=== PATIENT | female | born 1990 | race African-American/Black ===

== ENCOUNTER 2016-02-23 12:39 | Emergency (ER) | payer OTHER ==
[~2016-02-23] VITALS: Ht 167.6 cm; Wt 66.7 kg
[~2016-02-23 12:39] MED LIST: ALBUTEROL0.09 MG/A1 INH; ALBUTEROL2.5 MG/3 M INH/SOL; ALPRAZOLAM0.5 MG PO; AUGMENTIN 875 M1 TAB PO; BENLYSTA120 MG IV; BENTYL10 M1 PO; BIAXIN FILMTAB500 MG PO; COUMADIN 10 MG10 MG PO; COUMADIN 5 MG TA5 MG PO; COUMADIN10 M1 PO; COUMADIN7.5 M1 PO; CYCLOBENZAPRINE10 M1 PO; CYMBALTA30 M1 PO; DEPO-PROVER150 MG/ML IM; DEPO-TESTADIOL10 ML IM; DILAUDID2 M1 PO; DILAUDID2 MG PO; FERROUS SULFAT325 M1 PO; FLOVENT HF0.044 MG/A INH; FLOVENT HFA10.6 GM INH; GLUTOSE 1540% PO; GLUTOSE PO; HYDROMORPHONE HC2 MG PO; HYDROXYZINE HCL25 MG PO; IMURAN50 M1 PO; JUNEL FE 1 MG-1 EACH; KLONOPIN0.5 M1 PO; LABETALOL HCL100 M1 PO; LABETALOL HYDR100 MG PO; LABETALOL HYDR200 MG PO; LOESTRIN 21 1-1 EACH PO; LOVENOX 10100 MG/1 M SC; LOVENOX80 MG/0.1 SQ; MASON NATURAL325 MG PO; NEURONTIN100 MG PO; NORVASC 2.5 MG2.5 MG PO; NORVASC 5MG TAB5 MG PO; OXYCODONE HYDRO10 M1 PO; PANTOPRAZOLE SO40 M1 PO; PERCOCET 325 MG1 TA2; PERCOCET 325 MG1 TA2 PO; PERCOCET 325 MG1 TAB PO; PERCOCET 5-3251 EACH PO; PHENERGAN25 M1 PO; PLAQUENIL200 M1 PO; PLAQUENIL200 MG PO; PREDNISONE 10MG10 M1 PO; PREDNISONE 20MG20 MG PO; PREDNISONE10 MG PO; PREDNISONE20 M1 PO; PREDNISONE5 MG PO; PRINIVIL10 MG PO; PROAIR HFA8.5 GM INH; PROMETHAZINE HC25 M3 PO; PROTONIX 20MG T20 MG PO; PROTONIX40 M3 PO; REGLAN10 M1 PO; REGLAN10 MG PO; SENNA CON/DOCUS1 TAB PO; SINGULAIR10 MG PO; TIZANIDINE HCL2 MG PO; TRAZODONE HCL50 M1 PO; TYLENOL XSTR500 MG PO; VITAMIN D250000 UNIT PO; VITAMIN D50000 IU PO; VOLTAREN GEL1% TOP; XANAX0.5 MG PO; ZOFRAN ODT4 MG SL; ZOFRAN4 M1 SL; ZOFRAN4 M2 SL
--- NOTE | 2016-02-23 14:56 | ED GENERAL ADULT ---
History of Present Illness General Chief Complaint: General Adult Stated Complaint: LUPUS FLARE UP Source: patient, old records Exam Limitations: no limitations Vital Signs & Intake/Output Vital Signs & Intake/Output Vital Signs Date Time Temp Pulse Resp B/P Pulse O2 O2 Flow FiO2 Ox Delivery Rate 02/22 1626 96.6 18 119/73 02/22 1245 97.1 90 18 147/98 99 Room Air Allergies Coded Allergies: ibuprofen (TRIGGERS ASTHMA, ITCHY, HIVES 11/27/15) meperidine (From DEMEROL) (itch, HIVES 11/27/15) Reconcile Medications Albuterol (Albuterol Inhaler) 0.09 MG/Actuation MELODY 2 PUF INH Q4P PRN BREATHING (Reported) Reason to Stop at ADM: TRC NEBS Albuterol Sulfate 3 ML NEB 3 ML INH PRN ASTHMA (Reported) Azathioprine (Imuran) 50 MG TABLET 50 MG PO TID LUPUS (Reported) Clonazepam (Klonopin) 0.5 MG TABLET 2.5 MG PO BID ANXIETY (Reported) Dicyclomine Hydrochloride (Bentyl) 10 MG CAPSULE 1 CAP PO TID PRN ABDOMINAL SPASMS Duloxetine Hydrochloride (Cymbalta) 30 MG CAPSULE.DR 1 CAP PO BID MENTAL HEALTH (Reported) Ergocalciferol (Vitamin D2) (Vitamin D2) 50,000 UNIT CAPSULE 1 CAP PO 2XW SUPPLEMENT (Reported) Fluticasone Propionate (Flovent Hfa) 0.044 MG/Actuation MELODY 2 PUFF INH PRN ASTHMA (Reported) 44 MCG PER PUFF Hydroxychlorquine (Plaquenil) 200 MG TAB 1 TAB PO BID LUPUS (Reported) Hyoscyamine (Levsin) 0.125 MG TABLET 1 TAB PO Q4 PRN abdominal pain Labetalol HCl 100 MG TABLET 150 MG PO BID BP (Reported) Metoclopramide HCl (Reglan) 10 MG TABLET 1 TAB PO 4 TIMES/DAY PRN NAUSEA/ VOMITING 30 minutes before meals and bedtime Montelukast Sodium (Singulair) 10 MG TABLET 1 TAB PO DAILY ASTHMA (Reported) Norethindrone-E.estradiol-Iron (Junel Fe 1 MG-20 Mcg Tablet) (Unknown Strength) TABLET (Unknown Dose) UNKNOWN (Reported) Ondansetron (Zofran Odt) 4 MG TAB.RAPDIS 1 TAB SL TID PRN nausea Oxycodone HCl/Acetaminophen (Percocet 5-325 MG Tablet) 5 MG-325 MG TABLET 1 TAB PO BID PRN PAIN Pantoprazole Sodium 40 MG TABLET.DR 1 TAB PO DAILY GI (Reported) Prednisone 20 MG TABLET 15 MG PO DAILY LUPUS (Reported) TRAZODONE HCL (Trazodone HCl) 50 MG TAB 1 TAB PO QPM SLEEP (Reported) Warfarin Sodium (Coumadin) 10 MG TABLET 1 TAB PO DAILY HX DVT (Reported) Triage Note: 26 Y/O FEMALE C/O MIGRAINE HEADACHE AND NAUSEA SINCE MONDAY; STATES SHE THOUGHT SHE HAD THE "STOMACH VIRUS" LAST WEEK BUT CONTINUES TO FEEL NAUSEOUS AND UNABLE TO TOLERATE PO INTAKE. AFEBRILE Triage Nurses Notes Reviewed? yes Onset: Gradual Duration: week(s): (1) Timing: remote history Injury Environment: home Severity: moderate Severity Numbers: 7 No Modifying Factors: none Associated Symptoms: cough, chest pain : No Patient currently breastfeeds: No HPI: Patient is a 26-year-old female with history of blood clots and lupus presenting to the emergency department with chief complaint of generalized malaise, chills. Unable to keep anything down for the past several days. She reports that several family members of her household have been sick with a stomach bug. She reports diffuse abdominal discomfort. Couple episodes of loose stool. Symptoms currently moderate. She reports diffuse body aches. Denies any urinary frequency urgency or dysuria. Denies chance of . Unable to take Coumadin over the past 3-4 days secondary to nausea and vomiting. Denies any blood in emesis or stool. No recent travel. No recent antibiotics. Denies any leg swelling or pain. Pain over the chest hurts worse with a deep breath. (MANOJ WEBB) Past History Travel History Traveled to [place] past 21 day No Medical History Any Pertinent Medical History? 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 MOTHER (Rheumatoid arthritis). SISTER (Psoariasis). Relation not specified for: Blood clots DVT FH: diabetes mellitus FH: pancreatic cancer FH: rheumatoid arthritis Hx Contributory? No (MANOJ WEBB) Review of Systems Review of Systems Constitutional: Reports: chills, malaise. Comments Review of systems: See HPI, All other systems negative. Constitutional, no weight loss HEENT: No visual changes no sore throat no congestion Cardiovascular: No palpitation , orthopnea or ankle swelling Skin, no jaundice no rashes Respiratory: No sputum or hemoptysis GI: pos n/v/loose stool : No dysuria No hematuria Muscle skeletal: no back pain, no neck pain, Neurologic: No numbness no confusion Psych: No stress anxiety Immunology: No splenectomy or history of AIDS (MANOJ WEBB) Physical Exam Physical Exam General Appearance: well developed/nourished, no apparent distress, alert, awake , comfortable Comments: Well-developed well-nourished person in no acute distress HEENT: Pupils equally round and reactive to light and accommodation. Nose is atraumatic. External auditory canal and Tympanic membranes clear. Pharynx normal. No swelling or edema. Slightly dry oral mucosa. Neck: Supple, no lymphadenopathy, normal range of motion without pain or tenderness Back: Nontender, no CVA tenderness. Full range of motion Cardiovascular: Regular rate and rhythms no murmurs rubs or gallops, normal JVP Respiratory: Chest nontender. No respiratory distress.breath sounds slightly diminished to auscultation bilaterally at bases Abdomen: Soft, diffuse tenderness to palpation, no rebound or guarding, nondistended, no appreciable organomegaly. Normal bowel sounds. No ascites Extremity: No edema, no calf tenderness to palpation, normal and equal pulses. Neuro: Alert oriented x3 Skin: No appreciable rash on exposed skin, skin is warm and dry. Psych: Mood and affect is normal, memory and judgment is normal. Core Measures ACS in differential dx? Yes CVA/TIA Diagnosis: No Severe Sepsis Present: No Septic Shock Present: No (MANOJ WEBB) Progress Differential Diagnoses I considered the following diagnoses in my evaluation of the patient: Dehydration, I'll actually abnormality, pulmonary embolus, ACS, AMI, lupus flare , pneumonia, bronchitis, gastritis, gastroenteritis Plan of Care: Orders Procedure Date/time Status Add-on Test (ER Only) 02/22 1704 Active URINE 02/22 1555 Complete PROTHROMBIN TIME 02/22 1517 Complete URINE DRUG SCREEN FOR ER ONLY 02/22 1514 Complete URINALYSIS 02/22 1514 Complete TROPONIN LEVEL 02/22 1514 Complete LIPASE 02/22 1514 Complete COMPREHENSIVE METABOLIC PANEL 02/22 1514 Complete CBC WITHOUT DIFFERENTIAL 02/22 1514 Complete AMYLASE 02/22 1514 Complete EKG 02/22 1514 Active Current Medications Sig/Ariel Start time Last Medication Dose Stop Time Status Admin Hydromorphone HCl 0 .STK-MED ONE 02/22 1658 CAN (Dilaudid) Ondansetron HCl 0 .STK-MED ONE 02/22 1655 CAN (Zofran) Hydromorphone HCl 2 MG ONCE ONE 02/22 1630 CAN (Dilaudid) 02/22 1631 Ondansetron HCl 4 MG ONCE ONE 02/22 1630 CAN (Zofran) 02/22 1631 Laboratory Tests 02/23/16 1620: Anion Gap 11, Estimated GFR > 60, BUN/Creatinine Ratio 14.0, Glucose 77, Calcium 9.4, Total Bilirubin 0.5, AST 24, ALT 18, Alkaline Phosphatase 64, Troponin I < 0.01, Total Protein 8.6 H, Albumin 4.1, Globulin 4.5 H, Albumin/Globulin Ratio 0.9 L, Amylase 100, Lipase 112, PT 12.4, INR 1.18, CBC w Diff NO MAN DIFF REQ, RBC 3.90 L, MCV 82.3, MCH 26.8 L, RDW 13.6, MPV 8.8, Gran % 56.4, Lymphocytes % 31.8, Monocytes % 11.1 H, Eosinophils % 0.5, Basophils % 0.2, Absolute Granulocytes 2.7, Absolute Lymphocytes 1.5, Absolute Monocytes 0.5, Absolute Eosinophils 0, Absolute Basophils 0, PUBS MCHC 32.6 L 02/23/16 1555: Urine Opiates Screen < 100.00, Methadone Screen < 40, Barbiturate Screen 590 H, Ur Phencyclidine Scrn < 6.00, Amphetamines Screen < 100, U Benzodiazepines Scrn < 85, Urine Cocaine Screen < 50, Urine Cannabis Screen > 80.00 H, Urine Color YEL, Urine Clarity CLEAR, Urine pH 6.5, Ur Specific Langston 1.020, Urine Protein 30 H, Urine Ketones NEG, Urine Nitrite NEG, Urine Bilirubin NEG, Urine Urobilinogen 0.2, Ur Leukocyte Esterase NEG, Ur Microscopic SEDIMENT EXAMINED, Urine RBC RARE, Urine WBC 3-5 H, Ur Epithelial Cells MOD H, Urine Mucus FEW, Urine Hemoglobin NEG, Urine Glucose NEG, Urine Test NEGATIVE Diagnostic Imaging: Viewed by Me: CT Scan. Discussed w/RAD: CT Scan. Radiology Impression: PATIENT: RAJEEV GLASER PRESENT AGE: 26 PATIENT ACCOUNT NO: [id number] : 91 LOCATION: [facility] ORDERING PHYSICIAN: MANOJ FELIX SERVICE DATE: 02/23/16 EXAM TYPE: CAT - CTA CHEST-PULMONARY EMBOLISM EXAMINATION: CT ANGIOGRAM OF THE CHEST WITH AND WITHOUT CONTRAST (CT PULMONARY ANGIOGRAM FOR PE) CLINICAL INFORMATION: Shortness of breath and chest pain. Evaluate for pulmonary embolism. COMPARISON: CT angiogram of the chest 08/07/2014. TECHNIQUE: Prior to contrast administration, noncontrast localization images were obtained. Subsequently, multidetector volumetric imaging was performed from the thoracic inlet to below the diaphragms following the administration of 74 mL Optiray 350 intravenous contrast. No contrast reaction reported Sagittal, coronal, and MIP oblique sagittal reformatted images were obtained on the CT workstation, uploaded to PACS, and reviewed. Total exam dose-length product 278.72 mGy-cm FINDINGS: The timing of the contrast bolus injection provides adequate evaluation of the pulmonary arterial vasculature. There is no central luminal filling defect to suggest the presence of an acute pulmonary embolism. There is scarring and/or subsegmental atelectasis within the costophrenic recesses of the lower lobes. No focal consolidative disease or effusion. No pneumothorax. No worrisome pulmonary mass. The trachea and major airways are patent. There are numerous prominent symmetrically distributed axillary lymph nodes that remain largely unchanged when compared to the previous CT angiogram the chest from 08/07/2014. Post biopsy changes within the left axillary region are redemonstrated. The heart is slightly prominent but unchanged. There is no pericardial effusion. Aortic arch apex is normal and the major aortic branches are patent. Limited visualization of the upper abdomen reveals no abnormal finding. Digital glands are normal. There is no acute osseous finding. No worrisome lytic or blastic osseous lesions. IMPRESSION: Stable examination with scarring and/or atelectasis within the costophrenic recesses of the lower lobes. There is no focal consolidative disease or effusion. No evidence of acute pulmonary embolism. Bilateral axillary adenopathy is redemonstrated with post biopsy changes on the left. VTE: negative DICTATED BY: ERIN RUTLEDGE MD Initial ED EKG: sinus rhythm at 58 bpm, nonspecific T abnormalities Prior EKG: unchanged Comments: Patient reports that she is feeling much better after IV Dilaudid, IV fluids, IV Zofran. Patient will be discharged home. No signs of PE on CT scan. (MANOJ WEBB) Departure Departure Time of Disposition: 1899 Disposition: HOME OR SELF CARE Condition: Stable Clinical Impression Primary Impression: Nausea & vomiting Qualifiers: Vomiting type: unspecified Vomiting Intractability: non-intractable Qualified Code: R11.2 - Nausea with vomiting, unspecified Secondary Impressions: Chest pain Qualifiers: Chest pain type: unspecified Qualified Code: R07.9 - Chest pain, unspecified Referrals: MIRTHA LOBATO (PCP/Family) Additional Instructions: Follow-up with your primary care physician call to make appointment. Take percocet as previously prescribed for pain. Take Zofran as prescribed for nausea. Increase fluids. Return for worsening symptoms or concerns. take levsin for abdominal spasms. Departure Forms: Customer Survey General Discharge Information Prescriptions: Current Visit Scripts Ondansetron (Zofran Odt) 1 TAB SL TID PRN nausea #10 TAB Hyoscyamine (Levsin) 1 TAB PO Q4 PRN abdominal pain #20 TAB (MANOJ WEBB) PA/[employer]SI[employer]OM[employer] Co-Sign Statement Statement: ED Attending supervision documentation- [] I saw and evaluated the patient. I have also reviewed all the pertinent lab results and diagnostic results. I agree with the findings and the plan of care as documented in the PA's/[employer]SI[employer] WOMEN'[employer]'s documentation. [X] I have reviewed the ED Record and agree with the PA's/[employer]SI[employer] WOM[employer]'s documentation. [] Additions or exceptions (if any) to the PAs/ASSIST[employer] WOMEN'[employer]OWING CO[employer]'s note and plan are summarized below: [] (AARON DEL VALLE,MAYANK Germain) Critical Care Note Critical Care Note Critical Care Time: non-applicable (GIAN FELIX,MANOJ)
[2016-02-23 16:29] LABS: ABSOLUTE BASOPHIL COUNT 0 /CUMM (0.0-0.2); ABSOLUTE EOSINOPHIL COUNT 0 /CUMM (0.0-0.7); ABSOLUTE GRANULOCYTE CT 2.7 /CUMM (1.4-6.5); ABSOLUTE LYMPH COUNT 1.5 /CUMM (1.2-3.4); ABSOLUTE MONOCYTE COUNT 0.5 /CUMM (0.10-0.60); BASOPHIL % 0.2 % (0.0-2.0); EOSINOPHIL % 0.5 % (0-5); GRANULOCYTE % 56.4 % (42.2-75.2); HEMATOCRIT 32.1 % (37-47); MEAN CORPUSCULAR HGB 26.8 PG (27.0-31.0); MEAN CORPUSCULAR HGB CONC 32.6 G/DL (33.0-37.0); MEAN CORPUSCULAR VOLUME 82.3 FL (81.0-99.0); MEAN PLATELET VOLUME 8.8 FL (7.4-10.4); PLATELET COUNT 236 /CUMM (130-400); RBC DISTRIBUTION WIDTH 13.6 % (11.5-14.5); WHITE BLOOD CELL COUNT 4.8 /CUMM (4.8-10.8)
[2016-02-23 16:36] LABS: PT 12.4 SEC (9.4-12.5)
--- NOTE | 2016-02-23 18:08 | CT SCAN REPORT ---
EXAMINATION: CT ANGIOGRAM OF THE CHEST WITH AND WITHOUT CONTRAST (CT PULMONARY ANGIOGRAM FOR PE) CLINICAL INFORMATION: Shortness of breath and chest pain. Evaluate for pulmonary embolism. COMPARISON: CT angiogram of the chest 08/07/2014. TECHNIQUE: Prior to contrast administration, noncontrast localization images were obtained. Subsequently, multidetector volumetric imaging was performed from the thoracic inlet to below the diaphragms following the administration of 74 mL Optiray 350 intravenous contrast. No contrast reaction reported Sagittal, coronal, and MIP oblique sagittal reformatted images were obtained on the CT workstation, uploaded to PACS, and reviewed. Total exam dose-length product 278.72 mGy-cm FINDINGS: The timing of the contrast bolus injection provides adequate evaluation of the pulmonary arterial vasculature. There is no central luminal filling defect to suggest the presence of an acute pulmonary embolism. There is scarring and/or subsegmental atelectasis within the costophrenic recesses of the lower lobes. No focal consolidative disease or effusion. No pneumothorax. No worrisome pulmonary mass. The trachea and major airways are patent. There are numerous prominent symmetrically distributed axillary lymph nodes that remain largely unchanged when compared to the previous CT angiogram the chest from 08/07/2014. Post biopsy changes within the left axillary region are redemonstrated. The heart is slightly prominent but unchanged. There is no pericardial effusion. Aortic arch apex is normal and the major aortic branches are patent. Limited visualization of the upper abdomen reveals no abnormal finding. Digital glands are normal. There is no acute osseous finding. No worrisome lytic or blastic osseous lesions. IMPRESSION: Stable examination with scarring and/or atelectasis within the costophrenic recesses of the lower lobes. There is no focal consolidative disease or effusion. No evidence of acute pulmonary embolism. Bilateral axillary adenopathy is redemonstrated with post biopsy changes on the left. VTE: negative
[2016-02-23] MEDS ORDERED: LEVSIN0.125 M1 PO (19:03)
[2016-02-23] MEDS ORDERED: ZOFRAN ODT4 M1 SL (19:03)
[2016-02-23 19:31] VITALS: BP 125/76
[2016-07-15] MEDS ORDERED: HYDROXYZINE HCL25 M2 PO (12:24)
[2016-07-15] MEDS ORDERED: PERCOCET 10-321 EACH PO (12:24)
[2016-07-15] MEDS ORDERED: SINGULAIR10 M1 PO (12:24)
== END 2016-02-23 19:57 ==
LOC: ERH 12:39
PROVIDERS: Physician Assistant
DX: R11.2 Nausea with vomiting, unspecified (principal); R07.9 Chest pain, unspecified; R10.9 Unspecified abdominal pain; M79.1 Myalgia
CPT/HCPCS: 80307; 81001; 81025; 93005; 93010; 96374; 96375; 96376; J2405; J3101

== ENCOUNTER 2016-03-03 12:26 | Emergency (ER) | payer OTHER ==
[~2016-03-03] VITALS: Ht 167.6 cm; Wt 62.1 kg
[~2016-03-03 12:26] MED LIST changes: +LEVSIN0.125 M1 PO; +ZOFRAN ODT4 M1 SL
--- NOTE | 2016-03-03 13:13 | ED CARDIAC/CP/PALPITATIONS ---
History of Present Illness General Chief Complaint: Chest Pain Stated Complaint: PT HAS LUPAS AND HAVING CHEST PAIN & PALPATION Source: patient, old records Exam Limitations: no limitations Vital Signs & Intake/Output Vital Signs & Intake/Output Vital Signs Date Time Temp Pulse Resp B/P Pulse O2 O2 Flow FiO2 Ox Delivery Rate 03/03 1825 96.5 88 20 130/80 100 Room Air 03/03 1505 98.0 88 18 128/81 98 Room Air 03/03 1303 Room Air 03/03 1235 97.7 115 20 136/96 94 Room Air ED Intake and Output 03/04 0000 03/03 1200 Intake Total Output Total Balance Patient 137 lb Weight Allergies Coded Allergies: ibuprofen (TRIGGERS ASTHMA, ITCHY, HIVES 11/27/15) meperidine (From DEMEROL) (itch, HIVES 11/27/15) Reconcile Medications Albuterol (Albuterol Inhaler) 0.09 MG/Actuation MELODY 2 PUF INH Q4P PRN BREATHING (Reported) Reason to Stop at ADM: TRC NEBS Albuterol Sulfate 3 ML NEB 3 ML INH PRN ASTHMA (Reported) Azathioprine (Imuran) 50 MG TABLET 50 MG PO TID LUPUS (Reported) Clonazepam (Klonopin) 0.5 MG TABLET 2.5 MG PO BID ANXIETY (Reported) Dicyclomine Hydrochloride (Bentyl) 10 MG CAPSULE 1 CAP PO TID PRN ABDOMINAL SPASMS Duloxetine Hydrochloride (Cymbalta) 30 MG CAPSULE.DR 1 CAP PO BID MENTAL HEALTH (Reported) Ergocalciferol (Vitamin D2) (Vitamin D2) 50,000 UNIT CAPSULE 1 CAP PO 2XW SUPPLEMENT (Reported) Fluticasone Propionate (Flovent Hfa) 0.044 MG/Actuation MELODY 2 PUFF INH PRN ASTHMA (Reported) 44 MCG PER PUFF Hydroxychlorquine (Plaquenil) 200 MG TAB 1 TAB PO BID LUPUS (Reported) Hyoscyamine (Levsin) 0.125 MG TABLET 1 TAB PO Q4 PRN abdominal pain Labetalol HCl 100 MG TABLET 150 MG PO BID BP (Reported) Metoclopramide HCl (Reglan) 10 MG TABLET 1 TAB PO 4 TIMES/DAY PRN NAUSEA/ VOMITING 30 minutes before meals and bedtime Montelukast Sodium (Singulair) 10 MG TABLET 1 TAB PO DAILY ASTHMA (Reported) Norethindrone-E.estradiol-Iron (Junel Fe 1 MG-20 Mcg Tablet) (Unknown Strength) TABLET (Unknown Dose) UNKNOWN (Reported) Ondansetron (Zofran Odt) 4 MG TAB.RAPDIS 1 TAB SL TID PRN nausea Oxycodone HCl/Acetaminophen (Percocet 5-325 MG Tablet) 5 MG-325 MG TABLET 1 TAB PO BID PRN PAIN Pantoprazole Sodium 40 MG TABLET.DR 1 TAB PO DAILY GI (Reported) Prednisone 20 MG TABLET 15 MG PO DAILY LUPUS (Reported) TRAZODONE HCL (Trazodone HCl) 50 MG TAB 1 TAB PO QPM SLEEP (Reported) Warfarin Sodium (Coumadin) 10 MG TABLET 1 TAB PO DAILY HX DVT (Reported) Triage Note: PT TO ED C/O LEFT SIDED BACK PAIN RADIATING TO FRONT. C/O HEART PALPITATIONS AND CHEST TIGHTNESS X 2 DAYS. ALSO C/O HEADACHE. PT STATES "I AM ALSO VERY DEPRESSED AND WANT TO TALK TO SOMEONE". Triage Nurses Notes Reviewed? yes : No Patient currently breastfeeds: No HPI: 26-year-old female with chest pain and palpitations intermittently for the last 4 days. She has a history of lupus, history of PE/DVT, she supposed be on Coumadin but has not taken it for the last 2 weeks. She states that she is not taking any of her usual medications because she is very depressed. She has history of suicidal thoughts in the past, occasionally having suicidal thoughts recently over the last few weeks, has no plan. She previously attempted to commit suicide by wrapping headphones around her neck. She was admitted at [facility] inpatient a few years ago for this. She would like to speak with someone regarding her depression, she tends to speak her family and her fianc however she states that "they doN'T understand". She denies alcohol use, admits to marijuana use. in regards to her medications, they're intermittent and moderate and she has pain associated with the palpitations, she feels the bleeding in the left side of her chest that radiates into her neck. She has no lower extremity edema. No dyspnea on exertion. Upon review of her records, she has had a CT angiogram of her chest 9 days ago and no PE or abnormality was noted. She notes that she is not taking her medication any longer because she does not want to and doesn't feel they help (SAMANTHA FELIX,MOHAMUD) Past History Travel History Traveled to [place] past 21 day No Medical History Any Pertinent Medical History? see below for history Neurological: migraine EENT: NONE Cardiovascular: hypertension, Pericarditis Respiratory: asthma, h/o pleuritis and pleural effusions s/p thoracentesis Gastrointestinal: NONE Hepatic: NONE Renal: nephrolithiasis, CKD s/p biopsy (2007, 2010) Musculoskeletal: Avascular necrosis of hip Carpal tunnel syndrome left hand Psychiatric: anxiety, depression Endocrine: LUPUS Blood Disorders: anemia, DVT (Left IJ vein on coumadin) Cancer(s): NONE RN PRIOR AUTHORIZATION/Reproductive: D&C Other Medical Hx: SLE on prednisone History of MRSA: No History of VRE: No History of CDIFF: No Surgical History Surgical History: non-contributory Psychosocial History Who do you live with Significant Other Services at Home None What is your primary language Wolof Tobacco Use: Current Daily Use Daily Tobacco Use Amount/Type: => 5 Cigarettes daily ETOH Use: denies use Illicit Drug Use: denies illicit drug use Family History Family History, If Any: grandfather FH: HTN (hypertension) FATHER FH: HTN (hypertension) cousin FH: lupus FATHER (diabetes). MOTHER (Rheumatoid arthritis). SISTER (Psoariasis). Relation not specified for: Blood clots DVT FH: diabetes mellitus FH: pancreatic cancer FH: rheumatoid arthritis Hx Contributory? No (MOHAMUD FINE) Review of Systems Review of Systems Constitutional: Reports: see HPI. EENTM: Reports: no symptoms. Respiratory: Reports: no symptoms. Cardiovascular: Reports: see HPI. GI: Reports: no symptoms. Genitourinary: Reports: no symptoms. Musculoskeletal: Reports: no symptoms. Skin: Reports: no symptoms. Neurological/Psychological: Reports: see HPI. Hematologic/Endocrine: Reports: no symptoms. Immunologic/Allergic: Reports: no symptoms. All Other Systems: Reviewed and Negative (MOHAMUD FINE) Physical Exam Physical Exam Cardiovascular: regular rate/rhythm Comments: Well-developed well-nourished person in no acute distress HEENT: Normal EENT exam, extraocular motion intact, no nystagmus. Pupils equally round and reactive to light. Nose is atraumatic. External auditory canal and Tympanic membranes clear. Pharynx normal. No swelling or edema. Neck: Supple, no lymphadenopathy, normal range of motion without pain or tenderness Back: Nontender, no CVA tenderness. Full range of motion Cardiovascular: Regular rate and rhythms no murmurs, normal JVP Respiratory: Chest nontender. No respiratory distress. Breath sounds clear to auscultation bilaterally Abdomen: Soft, nontender nondistended, no appreciable organomegaly. Normal bowel sounds. No ascites Extremity: No edema, no calf tenderness to palpation, normal and equal pulses. Neuro: Alert oriented x3, motor sensory normal, cranial nerves II through XII grossly intact. Skin: No appreciable rash on exposed skin, skin is warm and dry. Psych: Depressed affect Core Measures ACS in differential dx? Yes Severe Sepsis Present: No Septic Shock Present: No (SAMANTHA FELIX,MOHAMUD) Progress Differential Diagnosis: AMI, aortic dissection, atrial fibrillation, cholecystitis, CHF/pulm edema, costochondritis, hyperkalemia, hypovolemia, hyperthyroid, hyperventilation, intracranial hemorrhage, musculoskeletal pain, myocarditis, pancreatitis, pericarditis, pneumonia, pneumothorax, PSVT, pulmonary embolism, PUD/GERD, PVCs/PACs, respiratory failure, rib fracture, sepsis, unstable angina, V-fib/V-Tach, WPW syndrome, SI/HI Plan of Care: Orders Procedure Date/time Status Regular Diet 03/04 B Active EKG 03/03 1311 Active ED CRISIS PSYCH CONSULT 03/03 1309 Active Telemetry/Cyber Intel Planner 03/03 1308 Active URINE DRUG SCREEN FOR ER ONLY 03/03 1308 Complete TROPONIN LEVEL 03/03 1308 Complete PROTHROMBIN TIME 03/03 1308 Complete ETHANOL 03/03 1308 Complete COMPREHENSIVE METABOLIC PANEL 03/03 1308 Complete CBC WITHOUT DIFFERENTIAL 03/03 1308 Complete B-TYPE NATRIURETIC PEP (BNP) 03/03 1308 Complete Laboratory Tests 03/03/16 1336: Urine Opiates Screen < 100.00, Methadone Screen < 40, Barbiturate Screen 106, Ur Phencyclidine Scrn < 6.00, Amphetamines Screen < 100, U Benzodiazepines Scrn < 85, Urine Cocaine Screen < 50, Urine Cannabis Screen > 80.00 H 03/03/16 1325: Anion Gap 10, Estimated GFR > 60, BUN/Creatinine Ratio 10.0, Glucose 84, Calcium 9.7, Total Bilirubin 0.4, AST 21, ALT 18, Alkaline Phosphatase 60, Troponin I < 0.01, Bqg-M-Cijkbabzbgb Pept 43.7, Total Protein 8.7 H, Albumin 4.2, Globulin 4.5 H, Albumin/Globulin Ratio 0.9 L, PT 13.0 H, INR 1.24 H, CBC w Diff NO MAN DIFF REQ, RBC 4.22, MCV 83.2, MCH 27.1, RDW 13.9, MPV 8.4, Gran % 74.5, Lymphocytes % 15.6 L, Monocytes % 9.4 H, Eosinophils % 0.3, Basophils % 0.2, Absolute Granulocytes 4.6, Absolute Lymphocytes 1.0 L, Absolute Monocytes 0.6, Absolute Eosinophils 0, Absolute Basophils 0, PUBS MCHC 32.5 L, Serum Alcohol < 10.0 Initial ED EKG: NSR, rate (86), nonspecific ST T wave chg (INVERSION LEAD III) Comments: Workup started for chest pain and evaluation for PE. Patient has had elevated d -dimers in the past, we'll obtain EKG and troponin and BNP to evaluate for right -sided heart strain. Patient is requesting medication for her pain in her chest. She is given 0.5 mg of Dilaudid IV. Psychiatric consultation was ordered. Workup was unremarkable, EKG is normal, troponin and BNP are not elevated, I do not feel so patient needs a repeat CTA of her chest. Her INR is subtherapeutic because patient has not been taking her Coumadin. She is given a dose of Lovenox 60 mg subcutaneous and Percocet which is her usual dose for her chronic pain. She was seen by crisis team and deemed not a danger to herself or others and it was recommended that she follows up with outpatient counseling. She understands and agrees with plan. (MOHAMUD FINE) Departure Departure Disposition: HOME OR SELF CARE Condition: Stable Clinical Impression Primary Impression: Chest pain Qualifiers: Chest pain type: unspecified Qualified Code: R07.9 - Chest pain, unspecified Secondary Impressions: Depression Qualifiers: Depression Type: unspecified Qualified Code: F32.9 - Major depressive disorder, single episode, unspecified Referrals: MIRTHA LOBATO (PCP/Family) Additional Instructions: Follow-up with the recommendations of the counselor for outpatient treatment of depression. Please start taking your medications as directed Departure Forms: Customer Survey General Discharge Information (MOHAMUD FINE) PA/UNDERCUTTER Co-Sign Statement Statement: ED Attending supervision documentation- [] I saw and evaluated the patient. I have also reviewed all the pertinent lab results and diagnostic results. I agree with the findings and the plan of care as documented in the PA's/UNDERCUTTER's documentation. [X] I have reviewed the ED Record and agree with the PA's/UNDERCUTTER's documentation. [] Additions or exceptions (if any) to the PAs/UNDERCUTTER's note and plan are summarized below: [] (WILMER DEL VALLE,NAHID) Critical Care Note Critical Care Note Critical Care Time: non-applicable (SAMANTHA FELIX,MOHAMUD)
[2016-03-03 13:31] LABS: ABSOLUTE BASOPHIL COUNT 0 /CUMM (0.0-0.2); ABSOLUTE EOSINOPHIL COUNT 0 /CUMM (0.0-0.7); ABSOLUTE GRANULOCYTE CT 4.6 /CUMM (1.4-6.5); ABSOLUTE MONOCYTE COUNT 0.6 /CUMM (0.10-0.60); BASOPHIL % 0.2 % (0.0-2.0); EOSINOPHIL % 0.3 % (0-5); GRANULOCYTE % 74.5 % (42.2-75.2); HEMATOCRIT 35.1 % (37-47); MEAN CORPUSCULAR HGB 27.1 PG (27.0-31.0); MEAN CORPUSCULAR HGB CONC 32.5 G/DL (33.0-37.0); MEAN CORPUSCULAR VOLUME 83.2 FL (81.0-99.0); MEAN PLATELET VOLUME 8.4 FL (7.4-10.4); PLATELET COUNT 269 /CUMM (130-400); RBC DISTRIBUTION WIDTH 13.9 % (11.5-14.5); RED BLOOD CELL CT 4.22 /CUMM (4.20-5.40); WHITE BLOOD CELL COUNT 6.2 /CUMM (4.8-10.8)
[2016-03-03 18:25] VITALS: BP 130/80
--- NOTE | 2016-03-03 19:42 | ED PSYCH CRISIS CONSULTATION ---
Crisis Consult Basic Assessment Date of Consult: 03/03/16 Responsible Person/Accompanied By: self/anastacio Vela Insurance Authorization: Insurance #1: Insurance name: AVTAR MARINA Phone number: Policy number: [id number] Group number: Authorization number: ED Provider: Patient's ED Provider: MOHAMUD FINE Primary Care Physician: Patient's PCP: MIRTHA LOBATO PCP's Current Psychiatrist: leia Chief Complaint: Chest Pain Patient's Quote: I feel hopeless. i don't feel important Present Illness: Pt is a 26yo female presenting at [place] ED this afternoon with c/o of back pain, GUO and heart palpitations. During evaluation with ELVIRA pt reported feeling depressed and wanted to speak with crisis. Pt reports increased feelings of depression related to lupus diagnosis and feeling medications aren't helping her manage pain. pt recently stopped taking some of her medications because she felt they weren't helping. Pt reports a psychiatric admission at [facility] a couple yrs ago due to wrapping phone cord around her neck while she was inpatient on a medical unit. Pt reports prescriptions for cymbalta and klonopin but no MH tx since [facility] hospitalization. PT denies SI/HI but reports issues of mood and a sense of hopelessness. she reports recent racing thoughts and feeling her brain is cluttered with past events. She denies etoh use and reports recent resuming of cannabis use 2-3x past 2 wks. Pt presents as tearful, alert and OX3. pt reports feeling better when she has someone to talk to about her feelings. Patient's Address: [address] [place] [address] Other Phone Number: Who Do You Live With? Other (see notes) (anastacio) Family/Informants Interviewed: collateral provided by anastacio Smith [phone] - he reports plan to provide support tonight and tommorow (day off) to pt. Allergies - Coded Allergies: ibuprofen (TRIGGERS ASTHMA, ITCHY, HIVES 11/27/15) meperidine (From DEMEROL) (itch, HIVES 11/27/15) Current Medications - Scheduled Medications Azathioprine (Imuran) 50 MG TABLET 50 MG PO TID LUPUS (Reported) Entered as Reported by DARY ANDERS on 03/12/15 1655 Clonazepam (Klonopin) 0.5 MG TABLET 2.5 MG PO BID ANXIETY (Reported) Entered as Reported by VIVEK ARITA on 09/05/15 1205 Duloxetine Hydrochloride (Cymbalta) 30 MG CAPSULE. 1 CAP PO BID MENTAL HEALTH (Reported) Entered as Reported by DARY ANDERS on 11/20/14 1842 Ergocalciferol (Vitamin D2) (Vitamin D2) 50,000 UNIT CAPSULE 1 CAP PO 2XW SUPPLEMENT (Reported) Entered as Reported by ANNE MARIE GALAN on 05/11/15 1443 Hydroxychlorquine (Plaquenil) 200 MG TAB 1 TAB PO BID LUPUS (Reported) Entered as Reported by DARY ANDERS on 11/20/14 1841 Labetalol HCl 100 MG TABLET 150 MG PO BID BP #180 (Reported) Entered as Reported by DARY ANDERS on 11/27/15 1909 Montelukast Sodium (Singulair) 10 MG TABLET 1 TAB PO DAILY ASTHMA (Reported) Entered as Reported by OSEI YA MD on 12/27/13 1541 Pantoprazole Sodium 40 MG TABLET.DR Ross TAB PO DAILY GI #30 (Reported) Entered as Reported by DARY ANDERS on 11/27/15 1909 Prednisone 20 MG TABLET 15 MG PO DAILY LUPUS (Reported) Entered as Reported by VIVEK ARITA on 09/05/15 1204 TRAZODONE HCL (Trazodone HCl) 50 MG TAB 1 TAB PO QPM SLEEP #30 (Reported) Entered as Reported by DARY ANDERS on 03/12/15 1700 Warfarin Sodium (Coumadin) 10 MG TABLET 1 TAB PO DAILY HX DVT (Reported) Entered as Reported by VIVEK ARITA on 09/05/15 1204 Scheduled PRN Medications Albuterol (Albuterol Inhaler) 0.09 MG/Actuation MELODY 2 PUF INH Q4P PRN BREATHING (Reported) Entered as Reported by LOYD HOWARD MD on 06/20/13 1705 Albuterol Sulfate 3 ML NEB 3 ML INH PRN ASTHMA (Reported) Entered as Reported by DARY ANDERS on 06/13/142000 Dicyclomine Hydrochloride (Bentyl) 10 MG CAPSULE 1 CAP PO TID PRN ABDOMINAL SPASMS #15 CAP Prescribed by LORENZO ANDRADE on 11/27/15 Fluticasone Propionate (Flovent Hfa) 0.044 MG/Actuation MELODY 2 PUFF INH PRN ASTHMA #1 MELODY (Reported) Entered as Reported by OSEI YA MD on 12/27/13 1541 Hyoscyamine (Levsin) 0.125 MG TABLET 1 TAB PO Q4 PRN abdominal pain #20 TAB Prescribed by MANOJ WEBB on 02/23/16 Metoclopramide HCl (Reglan) 10 MG TABLET 1 TAB PO 4 TIMES/DAY PRN NAUSEA/ VOMITING #20 TAB Prescribed by LORENZO ANDRADE on 11/27/15 Ondansetron (Zofran Odt) 4 MG TAB.RAPDIS 1 TAB SL TID PRN nausea #10 TAB Prescribed by MANOJ WEBB on 02/23/16 Oxycodone HCl/Acetaminophen (Percocet 5-325 MG Tablet) 5 MG-325 MG TABLET 1 TAB PO BID PRN PAIN #8 TAB Prescribed by LORENZO ANDRADE on 11/27/15 Miscellaneous Medications Norethindrone-E.estradiol-Iron (Junel Fe 1 MG-20 Mcg Tablet) (Unknown Strength) TABLET (Unknown Dose) UNKNOWN #28 (Reported) Entered as Reported by DARY ANDERS on 11/27/15 1908 Laboratory Results: Laboratory Tests 03/03/16 1336: Urine Opiates Screen < 100.00, Methadone Screen < 40, Barbiturate Screen 106, Ur Phencyclidine Scrn < 6.00, Amphetamines Screen < 100, U Benzodiazepines Scrn < 85, Urine Cocaine Screen < 50, Urine Cannabis Screen > 80.00 H 03/03/16 1325: Anion Gap 10, Estimated GFR > 60, BUN/Creatinine Ratio 10.0, Glucose 84, Calcium 9.7, Total Bilirubin 0.4, AST 21, ALT 18, Alkaline Phosphatase 60, Troponin I < 0.01, Cib-K-Zvemokjbsdn Pept 43.7, Total Protein 8.7 H, Albumin 4.2, Globulin 4.5 H, Albumin/Globulin Ratio 0.9 L, PT 13.0 H, INR 1.24 H, CBC w Diff NO MAN DIFF REQ, RBC 4.22, MCV 83.2, MCH 27.1, RDW 13.9, MPV 8.4, Gran % 74.5, Lymphocytes % 15.6 L, Monocytes % 9.4 H, Eosinophils % 0.3, Basophils % 0.2, Absolute Granulocytes 4.6, Absolute Lymphocytes 1.0 L, Absolute Monocytes 0.6, Absolute Eosinophils 0, Absolute Basophils 0, PUBS MCHC 32.5 L, Serum Alcohol < 10.0 Past History Past Medical History Neurological: migraine EENT: NONE Cardiovascular: hypertension, Pericarditis Respiratory: asthma, h/o pleuritis and pleural effusions s/p thoracentesis Gastrointestinal: NONE Hepatic: NONE Renal: nephrolithiasis, CKD s/p biopsy (2007, 2010) Musculoskeletal: Avascular necrosis of hip Carpal tunnel syndrome left hand Psychiatric: anxiety, depression Endocrine: LUPUS Blood Disorders: anemia, DVT (Left IJ vein on coumadin) Cancer(s): NONE 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 Past Surgical History Surgical History: non-contributory Psychosocial History Strengths/Capabilities: pt seeking outpatient tx to help manage depressive symptoms Psychiatric Treatment History Psych Treatment Psychiatric Treatment Yes Inpatient Treatment Yes Outpatient Treatment No Location of Treatment [facility] Reason for Treatment SA while on medical floor at [facility] - tied phone wire around her neck Dates of Treatment a couple of yrs ago Response to Treatment hasn't f/u with outpatient supports Diagnosis by History: Unspecified depressive d/o Substance Use/Abuse History Drug Use/Abuse Substances Used/Abused Yes Substance Used/Abused Marijuana Last Used past wk How often 2-3x/wk past 2 weeks Substance Abuse Treatment Substance Abuse Treatment Past Substance Abuse [place] No Inpatient Treatment No Outpatient Treatment No Comments: denies etoh. reports having stopped cannabis use until 2 wks ago and since has smoked 2-3x. Current Mental Status Mental Status Orientation: Person, Place, Situation Affect: Depressed Speech: WNL Neuro-vegetative: Anhedonia, Helpless, Sleep Disturbance Appearance Appearance- Dress/Hygiene: hospital gown. sitting upright in bed. Behaviors Thought Process: WNL Thought Content: WNL Memory: WNL Insight: Fair SI/HI Risk Assessment Past Suicidal Ideation/Attempts Yes Current Suicidal Ideation/Att No Past Homicidal Ideation/Att: No Current Homicidal Ideation/Attempts No Degree of Intent: None Risk Factors: chronic/serious med cond., high anxiety/distress, history of suicide atmpts, SA/MH hospitalized, poor impulse control Lethality Ratin PTSD Checklist PTSD Done? patient declined ED Management Sitter: No Restraints: No DSM5/PS Stressors/Medical Prob Diagnosis' (DSM 5, Stressors, Medical): Unspecified depressive d/o(F32.9) Lupus chronic pain Current GAF: 40 Comments: pt reports racing thoughts/brain cluttered with past events. reports family not supportive. Departure Disposition Psych Medical Clearance Date: 03/03/16 Medically Cleared at: 1700 Time Started: 170 Time Ended: 1744 Psychiatrist Consulted: John Foss MD Date Disposition Established: 03/03/16 Time Disposition Established: 1754 Plan for Disposition - Modality: Outpatient Facility: Patient to Arrange Rationale for Disposition: Pt c/o depression but denies SI/HI. Pt doesn't present at risk to self or others. Pt interested in outpatient services. Pt provided a list of providers with instructions to follow up in morning to call and schedule an appt. Referrals MIRTHA LOBATO (PCP/Family)
[2016-07-15] MEDS ORDERED: HYDROXYZINE HCL25 M2 PO (12:24)
[2016-07-15] MEDS ORDERED: PERCOCET 10-321 EACH PO (12:24)
[2016-07-15] MEDS ORDERED: SINGULAIR10 M1 PO (12:24)
== END 2016-03-03 18:27 ==
LOC: ERH 12:26
PROVIDERS: Physician Assistant Surgical
DX: R07.9 Chest pain, unspecified (principal); F12.10 Cannabis abuse, uncomplicated; I10 Essential (primary) hypertension; Z79.01 Long term (current) use of anticoagulants; Z72.0 Tobacco use
CPT/HCPCS: 80307; 93005; 93010; 96372; 96374; 96375; G0463; G0480; J1650; J2405

== ENCOUNTER 2016-03-29 00:36 | Emergency (ER) | payer OTHER ==
[~2016-03-29] VITALS: Ht 167.6 cm; Wt 63.5 kg
--- NOTE | 2016-03-29 01:23 | ED GENERAL ADULT ---
History of Present Illness General Chief Complaint: General Adult Stated Complaint: PT HX LOUPUS C/O GEN PAIN ABD TO ER Source: patient, old records Exam Limitations: no limitations Vital Signs & Intake/Output Vital Signs & Intake/Output Vital Signs Date Time Temp Pulse Resp B/P Pulse O2 O2 Flow FiO2 Ox Delivery Rate 03/29 0342 97.3 85 18 123/74 96 Room Air 03/29 0049 99.1 110 20 117/69 96 Room Air Allergies Coded Allergies: ibuprofen (TRIGGERS ASTHMA, ITCHY, HIVES 11/27/15) meperidine (From DEMEROL) (itch, HIVES 11/27/15) Reconcile Medications Albuterol (Albuterol Inhaler) 0.09 MG/Actuation MELODY 2 PUF INH Q4P PRN BREATHING (Reported) Reason to Stop at ADM: TRC NEBS Albuterol Sulfate 3 ML NEB 3 ML INH PRN ASTHMA (Reported) Azathioprine (Imuran) 50 MG TABLET 50 MG PO TID LUPUS (Reported) Clonazepam (Klonopin) 0.5 MG TABLET 2.5 MG PO BID ANXIETY (Reported) Dicyclomine Hydrochloride (Bentyl) 10 MG CAPSULE 1 CAP PO TID PRN ABDOMINAL SPASMS Duloxetine Hydrochloride (Cymbalta) 30 MG CAPSULE.DR 1 CAP PO BID MENTAL HEALTH (Reported) Ergocalciferol (Vitamin D2) (Vitamin D2) 50,000 UNIT CAPSULE 1 CAP PO 2XW SUPPLEMENT (Reported) Fluticasone Propionate (Flovent Hfa) 0.044 MG/Actuation MELODY 2 PUFF INH PRN ASTHMA (Reported) 44 MCG PER PUFF Hydroxychlorquine (Plaquenil) 200 MG TAB 1 TAB PO BID LUPUS (Reported) Hyoscyamine (Levsin) 0.125 MG TABLET 1 TAB PO Q4 PRN abdominal pain Labetalol HCl 100 MG TABLET 150 MG PO BID BP (Reported) Metoclopramide HCl (Reglan) 10 MG TABLET 1 TAB PO 4 TIMES/DAY PRN NAUSEA/ VOMITING 30 minutes before meals and bedtime Montelukast Sodium (Singulair) 10 MG TABLET 1 TAB PO DAILY ASTHMA (Reported) Norethindrone-E.estradiol-Iron (Junel Fe 1 MG-20 Mcg Tablet) (Unknown Strength) TABLET (Unknown Dose) UNKNOWN (Reported) Ondansetron (Zofran Odt) 4 MG TAB.RAPDIS 1 TAB SL TID PRN nausea Oxycodone HCl/Acetaminophen (Percocet 5-325 MG Tablet) 5 MG-325 MG TABLET 1 TAB PO BID PRN PAIN Pantoprazole Sodium 40 MG TABLET.DR 1 TAB PO DAILY GI (Reported) Prednisone 20 MG TABLET 15 MG PO DAILY LUPUS (Reported) TRAZODONE HCL (Trazodone HCl) 50 MG TAB 1 TAB PO QPM SLEEP (Reported) Warfarin Sodium (Coumadin) 10 MG TABLET 1 TAB PO DAILY HX DVT (Reported) Triage Note: PT WITH HX LUPUS C/O OF BODY PAIN FOR WEEK GETTING INCREASINLY WORSE. PT REPORTS FEELING "BURNING IN BONES" Triage Nurses Notes Reviewed? yes : No Patient currently breastfeeds: No HPI: Patient presents for evaluation of severe sharp stabbing bilateral lower extremity pain that began about 1 week ago. The pain has been constant and is getting worse and continues here in the emergency department. Patient also complains of dizziness and dyspnea on exertion. Patient also had transient swelling of her hands and feet that is now resolved. Patient denies fever, chills, vomiting or other GI symptoms. Patient tried Percocet without improvement. Past History Travel History Traveled to [place] past 21 day No Medical History Any Pertinent Medical History? 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 MOTHER (Rheumatoid arthritis). SISTER (Psoariasis). Relation not specified for: Blood clots DVT FH: diabetes mellitus FH: pancreatic cancer FH: rheumatoid arthritis Hx Contributory? No Review of Systems Review of Systems Constitutional: Reports: no symptoms. EENTM: Reports: no symptoms. Respiratory: Reports: no symptoms. Cardiovascular: Reports: no symptoms. GI: Reports: no symptoms. Genitourinary: Reports: no symptoms. Musculoskeletal: Reports: see HPI. Skin: Reports: no symptoms. Neurological/Psychological: Reports: no symptoms. Hematologic/Endocrine: Reports: no symptoms. Immunologic/Allergic: Reports: no symptoms. All Other Systems: Reviewed and Negative Physical Exam Physical Exam General Appearance: SEE BELOW Comments: Gen.: Well-nourished, well-developed, no acute respiratory distress. Head: Normocephalic, atraumatic. Eyes: Normal inspection bilaterally Ears: Normal inspection bilaterally Nose: Normal inspection, nasal cannula in place Throat/mouth : Moist mucosa Neck: Supple, full range of motion, no goiter Heart: Regular rate and rhythm Lungs: Quiet respirations Back: Normal range of motion Extremities: Decreased range of motion of both lower extremities due to pain. The lower extremities are otherwise neurovascularly intact bilaterally. No swelling. Neurologic: Cranial nerves grossly intact, speech is clear Skin: warm and dry Psychiatric: Calm, cooperative, no apparent delusions or hallucinations Core Measures ACS in differential dx? No CVA/TIA Diagnosis: No Severe Sepsis Present: No Septic Shock Present: No Progress Differential Diagnoses I considered the following diagnoses in my evaluation of the patient: Exacerbation OF LUPUS Plan of Care: Current Medications Sig/Ariel Start time Last Medication Dose Stop Time Status Admin Hydromorphone HCl 1 MG ONCE ONE 03/29 144 UNVr (Dilaudid) 03/29 145 Methylprednisolone 125 MG ONCE ONE 03/29 144 UNVr (Solu Medrol) 03/29 145 Ondansetron HCl 4 MG ONCE ONE 03/29 144 UNVr (Zofran) 03/29 145 Initial ED EKG: none Comments: 03/29/2016 3:07:10 AM patient has received some relief of her pain but she is still experiencing back and hip pain. 03/29/2016 4:15:59 AM dayona states she is beginning to feel better that the burning feeling has gone. She feels comfortable enough to return home. Plan Medrol Dosepak and continuation of current pain medications. Departure Departure Disposition: HOME OR SELF CARE Condition: Stable Clinical Impression Primary Impression: Exacerbation of systemic lupus Referrals: MIRTHA LOBATO (PCP/Family) Additional Instructions: Medrol dosepak as prescribed. Please restart your prednisone dose on the last day of the Medrol Dosepak. Follow-up with your Lupus doctor later this week. Notify your primary care doctor of this emergency department visit and treatment plan. Return if any concerns or sudden worsening. Thank you for choosing the [facility] Emergency Department for your care. It was a pleasure to serve you today. Davie Bay M.D. [facility] Departure Forms: Customer Survey General Discharge Information Prescriptions: Current Visit Scripts Methylprednisolone. (Medrol) 1 DP PO AD #1 DP 6 on day 1 then reduce by one tablet daily until gone Critical Care Note Critical Care Note Critical Care Time: non-applicable
[2016-03-29 03:42] VITALS: BP 123/74
[2016-03-29] MEDS ORDERED: MEDROL4 M2 PO (04:18)
[2016-07-15] MEDS ORDERED: SINGULAIR10 M1 PO (12:24)
[2016-07-15] MEDS ORDERED: HYDROXYZINE HCL25 M2 PO (12:24)
[2016-07-15] MEDS ORDERED: PERCOCET 10-321 EACH PO (12:24)
== END 2016-03-29 04:26 ==
LOC: ERH 00:36
DX: M32.9 Systemic lupus erythematosus, unspecified (principal)
CPT/HCPCS: 96374; 96375; 96376; J2405; J2930

== ENCOUNTER 2016-04-15 07:51 | Emergency (ER) | payer OTHER ==
[~2016-04-15] VITALS: Ht 167.6 cm; Wt 62.6 kg
[~2016-04-15 07:51] MED LIST changes: +MEDROL4 M2 PO
--- NOTE | 2016-04-15 08:07 | ED GENERAL ADULT ---
History of Present Illness General Chief Complaint: General Adult Stated Complaint: "PAIN ALL OVER" Source: patient, old records Exam Limitations: no limitations Vital Signs & Intake/Output Vital Signs & Intake/Output Vital Signs Date Time Temp Pulse Resp B/P Pulse O2 O2 Flow FiO2 Ox Delivery Rate 04/15 1001 80 14 118/82 99 Room Air 04/15 0807 99 Room Air 04/15 0755 98.0 77 20 111/75 95 Room Air Allergies Coded Allergies: ibuprofen (TRIGGERS ASTHMA, ITCHY, HIVES 11/27/15) meperidine (From DEMEROL) (itch, HIVES 11/27/15) Reconcile Medications Albuterol (Albuterol Inhaler) 0.09 MG/Actuation MELODY 2 PUF INH Q4P PRN BREATHING (Reported) Reason to Stop at ADM: TRC NEBS Albuterol Sulfate 3 ML NEB 3 ML INH PRN ASTHMA (Reported) Azathioprine (Imuran) 50 MG TABLET 50 MG PO TID LUPUS (Reported) Clonazepam (Klonopin) 0.5 MG TABLET 2.5 MG PO BID ANXIETY (Reported) Dicyclomine Hydrochloride (Bentyl) 10 MG CAPSULE 1 CAP PO TID PRN ABDOMINAL SPASMS Duloxetine Hydrochloride (Cymbalta) 30 MG CAPSULE. 1 CAP PO BID MENTAL HEALTH (Reported) Ergocalciferol (Vitamin D2) (Vitamin D2) 50,000 UNIT CAPSULE 1 CAP PO 2XW SUPPLEMENT (Reported) Fluticasone Propionate (Flovent Hfa) 0.044 MG/Actuation MELODY 2 PUFF INH PRN ASTHMA (Reported) 44 MCG PER PUFF Hydroxychlorquine (Plaquenil) 200 MG TAB 1 TAB PO BID LUPUS (Reported) Hyoscyamine (Levsin) 0.125 MG TABLET 1 TAB PO Q4 PRN abdominal pain Labetalol HCl 100 MG TABLET 150 MG PO BID BP (Reported) Methylprednisolone. (Medrol) 4 MG TAB.DS.PK 1 DP PO AD PAIN 6 on day 1 then reduce by one tablet daily until gone Methylprednisolone. (Medrol) 4 MG TAB.DS.PK 1 DP PO AD INFLAMMATION/lupus Metoclopramide HCl (Reglan) 10 MG TABLET 1 TAB PO 4 TIMES/DAY PRN nausea Metoclopramide HCl (Reglan) 10 MG TABLET 1 TAB PO 4 TIMES/DAY PRN NAUSEA/ VOMITING 30 minutes before meals and bedtime Montelukast Sodium (Singulair) 10 MG TABLET 1 TAB PO DAILY ASTHMA (Reported) Norethindrone-E.estradiol-Iron (Junel Fe 1 MG-20 Mcg Tablet) (Unknown Strength) TABLET (Unknown Dose) UNKNOWN (Reported) Ondansetron (Zofran Odt) 4 MG TAB.RAPDIS 1 TAB SL TID PRN nausea Oxycodone HCl/Acetaminophen (Percocet 5-325 MG Tablet) 5 MG-325 MG TABLET 1 TAB PO BID PRN PAIN Pantoprazole Sodium 40 MG TABLET.DR 1 TAB PO DAILY GI (Reported) Prednisone 20 MG TABLET 15 MG PO DAILY LUPUS (Reported) TRAZODONE HCL (Trazodone HCl) 50 MG TAB 1 TAB PO QPM SLEEP (Reported) Warfarin Sodium (Coumadin) 10 MG TABLET 1 TAB PO DAILY HX DVT (Reported) Triage Note: PT TO ED C/O PAIN AT SIGHT OF LOVENOX INJECTION TO ABD. PT ALSO C/O LOW BACK PAIN AND "KNOT" TO LEFT LEG. H/O LUPUS. Triage Nurses Notes Reviewed? yes : No Patient currently breastfeeds: No HPI: Patient is a 26-year-old female presents with multiple complaints. Patient reports that she is having diffuse abdominal pain. Pain began the right side of the abdomen in the area where she injected Lovenox(patient takes coumadin, reports she used the lovenox due to missing a dose of her coumadin). Pain onset on Monday approximately 2 hours after injecting Lovenox. Pain progressively began to radiate to the left side of the abdomen and inguinal area. Pain is sharp pain severe, worsens with palpation. Patient has been taking her Percocet 10 mg times with no improvement. Patient saw her pastoral counselor 2 days ago and was scheduled to have blood work and an ultrasound of her abdomen. Patient has not been able to obtain the blood work. Ultrasound is scheduled for next week. Patient had one episode of blood with diarrhea 2 days ago, none since. Patient reports positive hot flashes/subjective fevers, diaphoresis, nausea. Patient denies vomiting, urinary symptoms, dyspnea. (LUISA FELIX,MOHAMUD) Past History Travel History Traveled to [place] past 21 day No Medical History Any Pertinent Medical History? 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 MOTHER (Rheumatoid arthritis). SISTER (Psoariasis). Relation not specified for: Blood clots DVT FH: diabetes mellitus FH: pancreatic cancer FH: rheumatoid arthritis Hx Contributory? Yes (MOHAMUD MONREAL) Review of Systems Review of Systems Constitutional: Reports: diaphoresis. EENTM: Reports: throat pain (intermittent). Respiratory: Denies: cough, short of breath. Cardiovascular: Reports: palpitations. Denies: chest pain. GI: Reports: bloody stool (x 1 episode 2 days ago). Genitourinary: Reports: no symptoms. Musculoskeletal: Reports: joint pain. Skin: Reports: rash (pruritis). Neurological/Psychological: Reports: headache. Immunologic/Allergic: Reports: no symptoms. (MOHAMUD MONREAL) Physical Exam Physical Exam General Appearance: well developed/nourished, alert, awake Head: atraumatic, normal appearance Eyes: Bilateral: normal appearance, PERRL, EOMI. Ears, Nose, Throat: normal pharynx, normal ENT inspection, hearing grossly normal Neck: normal inspection, supple, full range of motion Respiratory: normal breath sounds, chest non-tender, no respiratory distress, lungs clear Cardiovascular: regular rate/rhythm Gastrointestinal: soft, mild diffuse tenderness. No areas of ecchymosis, no palpable hematomas. No rebound, rigidity, guarding. Back: normal inspection, normal range of motion, no vertebral tenderness, no cva tenderness Extremities: normal inspection, normal capillary refill, normal range of motion, no edema Neurologic/Psych: no motor/sensory deficits, awake, alert, oriented x 3, normal gait, normal mood/affect Skin: intact, normal color, warm/dry Lymphatic: no anterior cervical vinayak Core Measures ACS in differential dx? No CVA/TIA Diagnosis: No Severe Sepsis Present: No Septic Shock Present: No (LUISA FELIX,MOHAMUD) Progress Differential Diagnoses I considered the following diagnoses in my evaluation of the patient: Lupus exacerbation, chronic pain, internal bleeding, arrhythmia, electrolyte abnormality, medication seeking Plan of Care: Orders Procedure Date/time Status Add-on Test (ER Only) 04/15 912 Active EKG 04/15 817 Active URINE DRUGS OF ABUSE 04/16 815 Active URINE 04/16 815 Active URINALYSIS 04/16 815 Active PROTHROMBIN TIME 04/16 815 Complete LIPASE 04/16 815 Complete COMPREHENSIVE METABOLIC PANEL 04/16 815 Complete CBC WITHOUT DIFFERENTIAL 04/16 815 Complete Laboratory Tests 04/15/16 0852: Anion Gap 9, Estimated GFR > 60, BUN/Creatinine Ratio 15.7, Glucose 81, Calcium 9.0, Total Bilirubin 0.3, AST 25, ALT 27, Alkaline Phosphatase 53, Total Protein 7.5, Albumin 3.5, Globulin 4.0, Albumin/Globulin Ratio 0.9 L, Lipase 113, PT 11.9, INR 1.13, CBC w Diff NO MAN DIFF REQ, RBC 4.03 L, MCV 83.4, MCH 27.4, RDW 13.3, MPV 9.2, Gran % 59.5, Lymphocytes % 27.9, Monocytes % 11.8 H, Eosinophils % 0.7, Basophils % 0.1, Absolute Granulocytes 2.6, Absolute Lymphocytes 1.2, Absolute Monocytes 0.5, Absolute Eosinophils 0, Absolute Basophils 0, PUBS MCHC 32.8 L 04/15/16 0816: Methadone Screen Cancelled, Barbiturate Screen Cancelled, Ur Phencyclidine Scrn Cancelled, Amphetamines Screen Cancelled, U Benzodiazepines Scrn Cancelled, Urine Cocaine Screen Cancelled, Urine Cannabis Screen Cancelled previous records reviewed. hemoglobin and hematocrit consistent with patient's baseline. No peritoneal signs on exam. Pain onset 5 days ago. Low suspicion intraabdominal/retroperitoneal bleed. Results of labs discussed with patient. Discussed her subtherapeutic INR. Patient reports that she has 10 doses of Lovenox at home. Patient instructed to use her Lovenox for the next 3 days along with taking her Coumadin and to contact her prescriber for further dosing instructions and further INR checks. (MOHAMUD MONREAL) Initial ED EKG: sinus bradycardia 57 bpm normal axis, normal intervals, nonspecific T-wave abnormalities, no significant change from previous EKG Prior EKG: unchanged (MOHAMUD MONREAL) Departure Departure Time of Disposition: 936 Disposition: HOME OR SELF CARE Condition: Stable Clinical Impression Primary Impression: Exacerbation of systemic lupus Secondary Impressions: Subtherapeutic international normalized ratio (INR) Referrals: PATIENT HAS NO PRIMARY CARE DR (PCP/Family) Additional Instructions: Follow up with your pastoral counselor next week for further evaluation. Your INR was 1.13. Take your Coumadin as directed. Use your Lovenox as directed for the next 3 days, and your INR should be rechecked on Monday. Contact your doctor that prescribes your Coumadin to facilitate this and to discuss your Coumadin dosing. Take the Medrol Dose [place] as directed, when you complete the pack then restart your prednisone. Departure Forms: Customer Survey General Discharge Information Prescriptions: Current Visit Scripts Methylprednisolone. (Medrol) 1 DP PO AD #1 DP Metoclopramide HCl (Reglan) 1 TAB PO 4 TIMES/DAY PRN nausea #12 TAB (MOHAMUD MONREAL) PA/BUILDING SERVICES COORDINATOR Co-Sign Statement Statement: ED Attending supervision documentation- [] I saw and evaluated the patient. I have also reviewed all the pertinent lab results and diagnostic results. I agree with the findings and the plan of care as documented in the PA's/BUILDING SERVICES COORDINATOR's documentation. [x] I have reviewed the ED Record and agree with the PA's/BUILDING SERVICES COORDINATOR's documentation. [] Additions or exceptions (if any) to the PAs/BUILDING SERVICES COORDINATOR's note and plan are summarized below: [] (KAILEE MOREAU DO) Critical Care Note Critical Care Note Critical Care Time: non-applicable (MOHAMUD MONREAL)
[2016-04-15 09:05] LABS: ABSOLUTE BASOPHIL COUNT 0 /CUMM (0.0-0.2); ABSOLUTE EOSINOPHIL COUNT 0 /CUMM (0.0-0.7); ABSOLUTE GRANULOCYTE CT 2.6 /CUMM (1.4-6.5); ABSOLUTE LYMPH COUNT 1.2 /CUMM (1.2-3.4); ABSOLUTE MONOCYTE COUNT 0.5 /CUMM (0.10-0.60); BASOPHIL % 0.1 % (0.0-2.0); EOSINOPHIL % 0.7 % (0-5); GRANULOCYTE % 59.5 % (42.2-75.2); HEMATOCRIT 33.6 % (37-47); MEAN CORPUSCULAR HGB 27.4 PG (27.0-31.0); MEAN CORPUSCULAR HGB CONC 32.8 G/DL (33.0-37.0); MEAN CORPUSCULAR VOLUME 83.4 FL (81.0-99.0); MEAN PLATELET VOLUME 9.2 FL (7.4-10.4); PLATELET COUNT 239 /CUMM (130-400); RBC DISTRIBUTION WIDTH 13.3 % (11.5-14.5); RED BLOOD CELL CT 4.03 /CUMM (4.20-5.40); WHITE BLOOD CELL COUNT 4.4 /CUMM (4.8-10.8)
[2016-04-15 09:14] LABS: PT 11.9 SEC (9.4-12.5)
[2016-04-15] MEDS ORDERED: MEDROL4 M2 PO (09:37)
[2016-04-15] MEDS ORDERED: REGLAN10 M1 PO (09:37)
[2016-04-15 10:01] VITALS: BP 118/82
[2016-07-15] MEDS ORDERED: SINGULAIR10 M1 PO (12:24)
[2016-07-15] MEDS ORDERED: HYDROXYZINE HCL25 M2 PO (12:24)
[2016-07-15] MEDS ORDERED: PERCOCET 10-321 EACH PO (12:24)
== END 2016-04-15 10:09 ==
LOC: ERH 07:51
PROVIDERS: Physician Assistant
DX: M32.9 Systemic lupus erythematosus, unspecified (principal); R79.1 Abnormal coagulation profile; I10 Essential (primary) hypertension; Z72.0 Tobacco use
CPT/HCPCS: 80307; 81025; 93005; 93010; 96374; 96375; J2765; J2930

== ENCOUNTER 2016-04-20 02:57 | Emergency (ER) | payer OTHER ==
[~2016-04-20] VITALS: Ht 167.6 cm; Wt 62.6 kg
--- NOTE | 2016-04-20 03:50 | ED GENERAL ADULT ---
See Addendum History of Present Illness General Chief Complaint: General Adult Stated Complaint: BIBA GENERALIZED PAIN, HX LUPUS Source: patient Exam Limitations: no limitations Vital Signs & Intake/Output Vital Signs & Intake/Output Vital Signs Date Time Temp Pulse Resp B/P Pulse O2 O2 Flow FiO2 Ox Delivery Rate 04/20 0717 97.0 60 20 167/82 97 Room Air 04/20 0525 96.2 58 18 154/104 100 Room Air 04/20 0330 100 Room Air 04/20 0321 100 Room Air 04/20 0306 97.4 54 18 150/84 Allergies Coded Allergies: ibuprofen (TRIGGERS ASTHMA, ITCHY, HIVES 11/27/15) meperidine (From DEMEROL) (itch, HIVES 11/27/15) Reconcile Medications Albuterol (Albuterol Inhaler) 0.09 MG/Actuation MELODY 2 PUF INH Q4P PRN BREATHING (Reported) Reason to Stop at ADM: TRC NEBS Albuterol Sulfate 3 ML NEB 3 ML INH PRN ASTHMA (Reported) Azathioprine (Imuran) 50 MG TABLET 50 MG PO TID LUPUS (Reported) Clonazepam (Klonopin) 0.5 MG TABLET 2.5 MG PO BID ANXIETY (Reported) Dicyclomine Hydrochloride (Bentyl) 10 MG CAPSULE 1 CAP PO TID PRN ABDOMINAL SPASMS Duloxetine Hydrochloride (Cymbalta) 30 MG CAPSULE.DR 1 CAP PO BID MENTAL HEALTH (Reported) Ergocalciferol (Vitamin D2) (Vitamin D2) 50,000 UNIT CAPSULE 1 CAP PO 2XW SUPPLEMENT (Reported) Fluticasone Propionate (Flovent Hfa) 0.044 MG/Actuation MELODY 2 PUFF INH PRN ASTHMA (Reported) 44 MCG PER PUFF Hydroxychlorquine (Plaquenil) 200 MG TAB 1 TAB PO BID LUPUS (Reported) Labetalol HCl 100 MG TABLET 150 MG PO BID BP (Reported) Methylprednisolone. (Medrol) 4 MG TAB.DS.PK 1 DP PO AD INFLAMMATION/lupus Montelukast Sodium (Singulair) 10 MG TABLET 1 TAB PO DAILY ASTHMA (Reported) Norethindrone-E.estradiol-Iron (Junel Fe 1 MG-20 Mcg Tablet) (Unknown Strength) TABLET (Unknown Dose) UNKNOWN (Reported) Pantoprazole Sodium 40 MG TABLET.DR 1 TAB PO DAILY GI (Reported) Prednisone 20 MG TABLET 15 MG PO DAILY LUPUS (Reported) TRAZODONE HCL (Trazodone HCl) 50 MG TAB 1 TAB PO QPM SLEEP (Reported) Warfarin Sodium (Coumadin) 10 MG TABLET 1 TAB PO DAILY HX DVT (Reported) Triage Note: TRIAGE: FRANKLINA FROM HOME FOR GENERALIZED PAIN D/T HX LUPUS, SEEN HERE 04/15 AND GIVEN DILAUDID, TAKING MEDROL RX, TAKING W/O RELIEF. PATIENT ALSO REPORTS HAS AN URI AND HAS INTERMITTENT SOB, O2:93%RA ON EMS ARRIVAL, 98% 3LNC. Triage Nurses Notes Reviewed? yes : No Patient currently breastfeeds: No HPI: Patient presents for evaluation of "pain all over". The pain seems to be worst in the low back and in the chest. Patient states she is experiencing a moderate to severe chest tightness and chest pressure with associated palpitations that occur every 10-15 minutes. He is also complaining of a migraine headache and seeing spots in her eyes. She has also had a fever and has felt cold and hot. She also states that she feels dehydrated because she is unable to eat or drink anything. She denies any associated dyspnea or diarrhea. She is currently on pain management and has been taking pain medications roughly every 4 hours. The last dose of pain medication was about 7:00 last night. It addition to the above the patient states she fell on Monday onto her right side. Past History Travel History Traveled to [place] past 21 day No Medical History Any Pertinent Medical History? 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 MOTHER (Rheumatoid arthritis). SISTER (Psoariasis). Relation not specified for: Blood clots DVT FH: diabetes mellitus FH: pancreatic cancer FH: rheumatoid arthritis Hx Contributory? No Review of Systems Review of Systems Constitutional: Reports: see HPI. EENTM: Reports: no symptoms. Respiratory: Reports: no symptoms. Cardiovascular: Reports: chest pain. GI: Reports: see HPI. Genitourinary: Reports: no symptoms. Musculoskeletal: Reports: see HPI. Skin: Reports: no symptoms. Neurological/Psychological: Reports: no symptoms. Hematologic/Endocrine: Reports: no symptoms. Immunologic/Allergic: Reports: no symptoms. All Other Systems: Reviewed and Negative Physical Exam Physical Exam General Appearance: SEE BELOW Comments: Gen.: Well-nourished, well-developed, no acute respiratory distress. Head: Normocephalic, atraumatic. Eyes: Normal inspection bilaterally Ears: Normal inspection bilaterally Nose: Normal inspection Throat/mouth : Moist mucosa Neck: Supple, full range of motion, no goiter Heart: Regular rate and rhythm, no murmurs rubs or gallops Lungs: Clear to auscultation bilaterally with normal air entry Chest: Diffuse tenderness Back: Normal range of motion Abdomen: Soft, diffuse tenderness without rebound or guarding, nondistended, normal bowel sounds Extremities: Normal range of motion grossly, equal radial pulses, no cyanosis clubbing or edema Neurologic: Cranial nerves grossly intact, speech is clear Skin: warm and dry Psychiatric: Calm, cooperative, no apparent delusions or hallucinations Core Measures ACS in differential dx? No CVA/TIA Diagnosis: No Severe Sepsis Present: No Septic Shock Present: No Progress Differential Diagnoses I considered the following diagnoses in my evaluation of the patient: Lupus exacerbation, infection or dehydration Plan of Care: Orders Procedure Date/time Status D-DIMER 04/20 034 Complete URINALYSIS 04/20 346 Complete TROPONIN LEVEL 04/20 346 Complete HIGH SENSITIVITY CRP 04/20 346 Complete WESTERGREN SED RATE 04/20 346 Complete COMPREHENSIVE METABOLIC PANEL 04/20 346 Complete CBC WITHOUT DIFFERENTIAL 04/20 346 Complete Current Medications Sig/Ariel Start time Last Medication Dose Stop Time Status Admin Hydromorphone HCl 1 MG ONCE ONE 04/20 0715 UNVr (Dilaudid) 04/20 07 Dexamethasone 8 MG ONCE ONE 03/15 0445 CAN (Decadron) 04/20 0446 Laboratory Tests 04/20/16 0657: Urinalysis LIGHT H, Urine Color YEL, Urine Clarity HAZY H, Urine pH 6.5, Ur Specific [place] >= 1.030, Urine Protein 100 H, Urine Ketones NEG, Urine Nitrite NEG, Urine Bilirubin NEG, Urine Urobilinogen 0.2, Ur Leukocyte Esterase NEG, Ur Microscopic SEDIMENT EXAMINED, Urine RBC 3-5, Urine WBC 1-3 H, Ur Epithelial Cells MOD H, Urine Bacteria FEW H, Urine Mucus MANY H, Urine Hemoglobin MOD H, Urine Glucose NEG 04/20/16 0400: Anion Gap 11, Estimated GFR > 60, BUN/Creatinine Ratio 26.0 H, Glucose 100 H, Calcium 9.5, Total Bilirubin 0.5, AST 22, ALT 29, Alkaline Phosphatase 57, Troponin I < 0.01, C-React Prot High Sens 0.8 L, Total Protein 8.2, Albumin 4.0 , Globulin 4.2, Albumin/Globulin Ratio 1.0 L, D-Dimer 259 H, CBC w Diff NO MAN DIFF REQ, RBC 4.14 L, MCV 84.1, MCH 27.1, RDW 13.7, MPV 9.1, Gran % 81.4 H, Lymphocytes % 11.3 L, Monocytes % 6.3, Eosinophils % 0.5, Basophils % 0.5, Absolute Granulocytes 5.9, Absolute Lymphocytes 0.8 L, Absolute Monocytes 0.5, Absolute Eosinophils 0, Absolute Basophils 0, PUBS MCHC 32.2 L, ESR Westergren 41 H 04/20/16 0349: Troponin I Cancelled Diagnostic Imaging: Viewed by Me: Radiology Read. Discussed w/RAD: Radiology Read. CXR Impression: PATIENT: RAJEEV GLASER PRESENT AGE: 26 PATIENT ACCOUNT NO: [id number] : 91 LOCATION: [facility] ORDERING PHYSICIAN: DAVIE HAIRSTON MD SERVICE DATE: 04/20/16 EXAM TYPE: RAD - XRY-PORTABLE CHEST XRAY EXAMINATION: XR PORTABLE CHEST CLINICAL INFORMATION: Fever. Chest pain. COMPARISON: 08/17/2015 TECHNIQUE: Portable AP view of the chest was obtained. FINDINGS: The lungs are well expanded. There is hazy left basilar opacity. No edema or effusion. No pneumothorax. The cardiomediastinal silhouette is within normal limits. No acute osseous abnormality. IMPRESSION: Hazy left basilar opacity could represent atelectasis or pneumonia. DICTATED BY: ALEJANDRO HERNÁNDEZ MD DATE/TIME DICTATED:04/20/16424 CAREER DEVELOPER: SIVAKUMAR DATE/TIME TRANSCRIBED:04/20/16424 CONFIDENTIAL, DO NOT COPY WITHOUT APPROPRIATE AUTHORIZATION. <Electronically signed in Other Vendor System> SIGNED BY: ALEJANDRO HERNÁNDEZ MD 04/20/16428 Initial ED EKG: none Comments: 04/20/2016 5:31:51 AM I have updated Dayona on her test results. Her clinical presentation is inconsistent with pneumonia given the lack of fever and elevated white blood cell count or productive cough. Although she states that she is having severe pain secondary to her lupus her white count is normal and her C- reactive protein marker to this point is normal and although her ESR is elevated it is the lowest that has been recorded here at [facility]. She does admit that her migraine is feeling better. But in regards to her "all over pain " SHe states that the Dilaudid was like "Tylenol". She appears somewhat somnolent and her speech is mildly slurred. She will try to provide a urine specimen shortly. I am reluctant to give additional narcotic pain relievers given the above. I have also reviewed the patient's discharge summary from her most recent hospital visit and there was a concern for narcotic dependence. 04/20/2016 6:44:42 AM I have updated dayona again. At this point she seems more alert, clear eyed and her speech is clear. She feels ready to give a urine specimen. 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 Notify your primary care doctor of this emergency department visit and treatment plan. Return if any concerns or sudden worsening. Please note that there might be incidental findings in your evaluation that are unrelated to the current emergency department visit. Please notify your primary care doctor about this emergency department visit in order to obtain and review all of the testing performed so that these incidental findings can be monitored as needed. If you had an x-ray performed, please understand that some fractures may not be seen on the initial set of x-rays. If your symptoms persist you might need a repeat set of x-rays to check for such a fracture. If you had a laceration evaluated, please understand that foreign bodies such as glass or wood may not be visible to the naked eye or on plain x-rays. If the wound becomes red, swollen, increasingly more painful or if there is any drainage from the wound, please have it reevaluated by a physician for the possibility of a retained foreign body. Thank you for choosing the [facility] Emergency Department for your care. It was a pleasure to serve you today. Davie Hairston M.D. [facility] Departure Forms: Customer Survey General Discharge Information Critical Care Note Critical Care Note Critical Care Time: non-applicable
[2016-04-20 04:19] LABS: ABSOLUTE BASOPHIL COUNT 0 /CUMM (0.0-0.2); ABSOLUTE EOSINOPHIL COUNT 0 /CUMM (0.0-0.7); ABSOLUTE GRANULOCYTE CT 5.9 /CUMM (1.4-6.5); ABSOLUTE LYMPH COUNT 0.8 /CUMM (1.2-3.4); ABSOLUTE MONOCYTE COUNT 0.5 /CUMM (0.10-0.60); BASOPHIL % 0.5 % (0.0-2.0); EOSINOPHIL % 0.5 % (0-5); GRANULOCYTE % 81.4 % (42.2-75.2); HEMATOCRIT 34.8 % (37-47); MEAN CORPUSCULAR HGB 27.1 PG (27.0-31.0); MEAN CORPUSCULAR HGB CONC 32.2 G/DL (33.0-37.0); MEAN CORPUSCULAR VOLUME 84.1 FL (81.0-99.0); MEAN PLATELET VOLUME 9.1 FL (7.4-10.4); PLATELET COUNT 300 /CUMM (130-400); RBC DISTRIBUTION WIDTH 13.7 % (11.5-14.5); RED BLOOD CELL CT 4.14 /CUMM (4.20-5.40)
[2016-04-20 04:26] LABS: WHITE BLOOD CELL COUNT 7.3 /CUMM (4.8-10.8)
--- NOTE | 2016-04-20 04:29 | RADIOLOGY REPORT ---
EXAMINATION: XR PORTABLE CHEST CLINICAL INFORMATION: Fever. Chest pain. COMPARISON: 08/17/2015 TECHNIQUE: Portable AP view of the chest was obtained. FINDINGS: The lungs are well expanded. There is hazy left basilar opacity. No edema or effusion. No pneumothorax. The cardiomediastinal silhouette is within normal limits. No acute osseous abnormality. IMPRESSION: Hazy left basilar opacity could represent atelectasis or pneumonia.
[2016-04-20 07:17] VITALS: BP 167/82
[2016-04-20 08:20] LABS: PT 28.6 SEC (9.4-12.5)
[2016-07-15] MEDS ORDERED: HYDROXYZINE HCL25 M2 PO (12:24)
[2016-07-15] MEDS ORDERED: SINGULAIR10 M1 PO (12:24)
[2016-07-15] MEDS ORDERED: PERCOCET 10-321 EACH PO (12:24)
== END 2016-04-20 08:05 ==
LOC: ERH 02:57
PROVIDERS: Emergency Medicine
DX: G89.29 Other chronic pain (principal); Z87.898 Personal history of other specified conditions; R07.89 Other chest pain; G43.909 Migraine, unspecified, not intractable, without status migrainosus; M54.5 Low back pain
CPT/HCPCS: 81001; 96361; 96374; 96375; 96376; J1100; J2405

== ENCOUNTER 2016-05-21 14:21 | Emergency (ER) | payer OTHER ==
[~2016-05-21] VITALS: Ht 167.6 cm; Wt 60.8 kg
--- NOTE | 2016-05-21 15:24 | ED UPPER/LOWER EXTREMITY COMPL ---
History of Present Illness General Chief Complaint: Hand or Wrist Injury Stated Complaint: L ARM PAIN Source: patient Exam Limitations: no limitations Vital Signs & Intake/Output Vital Signs & Intake/Output Vital Signs Date Time Temp Pulse Resp B/P Pulse O2 O2 Flow FiO2 Ox Delivery Rate 05/21 2010 74 118/68 05/21 1845 97.1 70 14 122/70 100 Room Air 05/21 1442 98.2 113 20 138/89 96 Room Air ED Intake and Output 05/22 0000 05/21 1200 Intake Total Output Total Balance Patient 134 lb Weight Allergies Coded Allergies: ibuprofen (TRIGGERS ASTHMA, ITCHY, HIVES 11/27/15) meperidine (From DEMEROL) (itch, HIVES 11/27/15) Reconcile Medications Albuterol Sulfate (Proair Hfa) 90 MCG HFA.AER.AD 2 PUF INH Q4-6 PRN PRN SHORTNESS OF BREATH (Reported) Albuterol Sulfate 2.5 MG/3 ML (0.083 %) VIAL.NEB 1 Vial INH/DELMY Q4P PRN SHORTNESS OF BREATH (Reported) Azathioprine (Imuran) 50 MG TABLET 50 MG PO TID LUPUS (Reported) Duloxetine Hydrochloride (Cymbalta) 30 MG CAPSULE.DR 1 CAP PO BID MENTAL HEALTH (Reported) Ergocalciferol (Vitamin D2) (Vitamin D2) 50,000 UNIT CAPSULE 1 CAP PO SuTh SUPPLEMENT (Reported) Fluticasone Propionate (Flovent Hfa) 44 MCG AER.W.ADAP 2 PUF INH BID PRN ASTHMA (Reported) Hydroxychlorquine (Plaquenil) 200 MG TABLET 1 TAB PO BID LUPUS (Reported) Labetalol HCl 100 MG TABLET 1 TAB PO BID HEART (Reported) Montelukast Sodium (Singulair) 10 MG TABLET 1 TAB PO DAILY ALLERGIES ( Reported) Oxycodone HCl/Acetaminophen (Oxycodone-Acetaminophen 10-325) 10 MG-325 MG TABLET 1 TAB PO Q4P PRN PAIN (Reported) Pantoprazole Sodium 40 MG TABLET.DR 1 TAB PO DAILY GI (Reported) Prednisone 20 MG TABLET 12 MG PO DAILY LUPUS (Reported) Trazodone HCl 50 MG TABLET 1 TAB PO QPM SLEEP (Reported) Warfarin Sodium (Coumadin) 10 MG TABLET 1 TAB PO DAILY HX DVT (Reported) Triage Note: PT TO ED C/O LEFT ARM PAIN SINCE 0220 THIS AM. STATES SHE WOKE UP AND LEFT ARM/WRIST WAS PAINFUL AND SWOLLEN. H/O CLOTS IN LEFT ARM PER PT. STATES SHE'S BEEN FEELING ACHY DUE TO HER LUPUS. Triage Nurses Notes Reviewed? yes : No Patient currently breastfeeds: No HPI: 26 yo F PMH SLE, DVT, CKD presenting with left upper extremity swelling and pain. Patient endorses generalized symptoms of a lupus flare for the past 3-4 days with diffuse joint pains and muscle aches, migratory, worst in the upper extremity. Intermittent sharp chest pains and shortness of breath, episodic lasting seconds, nonexertional, nonpleuritic, similar to previous lupus exacerbations. 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 Patient has had multiple left upper extremity clots requiring anticoagulation or surgical excision, concerned for recurrence. Denies fevers, chills, neck pain, palpitations, abdominal pain, nausea, vomiting, diarrhea, constipation, bloody stools, headaches, dizziness, or focal neurologic symptoms. (KATIUSKA DEL VALLE,RABIA) Past History Travel History Traveled to [place] past 21 day No Medical History Any Pertinent Medical History? 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 MOTHER (Rheumatoid arthritis). SISTER (Psoariasis). Relation not specified for: Blood clots DVT FH: diabetes mellitus FH: pancreatic cancer FH: rheumatoid arthritis Hx Contributory? Yes (RABIA HARP MD) Review of Systems Review of Systems Constitutional: Reports: malaise. Denies: chills, fever, weakness. EENTM: Reports: no symptoms. Respiratory: Reports: short of breath. Denies: cough. Cardiovascular: Reports: chest pain. Denies: orthopena, palpitations, peripheral edema. Gastrointestinal/Abdominal: Reports: no symptoms. Genitourinary: Reports: no symptoms. Musculoskeletal: Denies: joint pain, joint swelling, muscle pain, muscle stiffness. Skin: Reports: change in skin color. Neurological/Psychological: Reports: no symptoms. Hematologic/Endocrine: Reports: no symptoms. Immunological: Reports: no symptoms. All Other Systems: Reviewed and Negative (RABIA HARP MD) Physical Exam Physical Exam General Appearance: well developed/nourished, no apparent distress, alert, awake Head: atraumatic, normal appearance Eyes: Bilateral: normal appearance. Ears, Nose, Throat: normal pharynx, normal ENT inspection, hearing grossly normal Neck: normal inspection, full range of motion Cardiovascular/Respiratory: normal peripheral pulses Peripheral Pulses: 2+ radial (R), 2+ radial (L) Gastrointestinal: soft, nontender to palpation throughout Back: normal inspection, normal range of motion Comments: Left upper extremity: Nonpitting edema of left upper extremity to upper arm, diffuse tenderness to palpation in forearm worst over wrist joint and proximal hand, range of motion limited by pain, 2+ radial and ulnar pulses, no sensory deficits, left first through third fingers cool with mild bluish discoloration. (RABIA HARP MD) Progress Differential Diagnosis: arterial insufficiency, compartment syndrome, DVT Plan of Care: Orders Procedure Date/time Status TROPONIN LEVEL 05/21 1843 Complete US-DUPLEX SCAN UPPER EXT ARTER 05/21 1527 Active TROPONIN LEVEL 05/21 1527 Complete CBC WITHOUT DIFFERENTIAL 05/21 1527 Complete BASIC METABOLIC PANEL 05/21 1527 Complete EKG 05/21 1527 Active Laboratory Tests 05/21/16 1902: Troponin I < 0.01 05/21/16 1600: Anion Gap 11, Estimated GFR > 60, BUN/Creatinine Ratio 11.4, Glucose 60 L, Calcium 9.6, Troponin I < 0.01, CBC w Diff NO MAN DIFF REQ, RBC 4.14 L, MCV 84.0, MCH 26.9 L, RDW 12.7, MPV 8.3, Gran % 59.0, Lymphocytes % 21.5, Monocytes % 18.8 H, Eosinophils % 0.5, Basophils % 0.2, Absolute Granulocytes 3.0, Absolute Lymphocytes 1.1 L, Absolute Monocytes 1.0 H, Absolute Eosinophils 0, Absolute Basophils 0, PUBS MCHC 32.1 L Physician MDM: 26 yo F PMH SLE, DVT, CKD presenting with left upper extremity swelling and pain. Tachycardic, otherwise VSS, left upper extremity exam as above. DDx: Lupus flare, lupus arthritis, upper extremity DVT, Raynauds phenomenon, less likely acute arterial occlusion. Morphine for pain. CMP, CBC unremarkable, glucose low at 60, patient ate in ED without issue. EKG sinus rhythm, nonischemic, troponins negative 2. Left upper extremity arterial and venous ultrasounds unremarkable, no evidence of DVT. On reexamination raynauds phenomenon resolved, normal circulation to all 5 digits of left hand. Call to speak with on-call physician for [facility], will see patient for close follow-up next week, requested patient call to make appointment for Monday, but the patient is having symptoms consistent with lupus flare (especially systemic symptoms like malaise and diffuse joint pains) prednisone dosing can be increased to 20 mg daily to help with symptoms. Given reassuring labs and imaging, patient pain improved, discharged with return precautions, patient has pain control medications at home, plan for close follow up with rheumatology. The plan of care was discussed with the patient had expressed agreement and understanding. (KATIUSKA DEL VALLE,RABIA) Departure Departure Disposition: HOME OR SELF CARE Condition: Stable Clinical Impression Primary Impression: Left arm pain Secondary Impressions: Left arm swelling Referrals: UNKNOWN (PCP/Family) Additional Instructions: Increase dosing of prednisone to 20 mg daily. Take tylneol for mild-moderate pain. Take oxycodone for severe pain. Call to arrange for closer follow up with [facility] on Monday. Return to the ED for any new, worsening, or concerning symptoms. Departure Forms: Customer Survey General Discharge Information (KATIUSKA DEL VALLE,RABIA) Resident Co-Sign Statement Statement: ED Attending supervision documentation- [X] I saw and evaluated the patient. I have also reviewed all the pertinent lab results and diagnostic results. I agree with the findings and the plan of care as documented in the Resident's documentation. [X] I have reviewed the ED Record and agree with the Resident's documentation. [] Additions or exceptions (if any) to the Resident's note and plan are summarized below: [] (AARON DEL VALLE,MAYANK Germain)
[2016-05-21] MEDS ORDERED: LABETALOL HCL100 M1 PO (15:25)
[2016-05-21] MEDS ORDERED: OXYCODONE-ACET1 EAC1 PO (15:26)
[2016-05-21] MEDS ORDERED: SINGULAIR10 M1 PO (15:27)
[2016-05-21 16:07] LABS: ABSOLUTE BASOPHIL COUNT 0 /CUMM (0.0-0.2); ABSOLUTE EOSINOPHIL COUNT 0 /CUMM (0.0-0.7); ABSOLUTE LYMPH COUNT 1.1 /CUMM (1.2-3.4); BASOPHIL % 0.2 % (0.0-2.0); EOSINOPHIL % 0.5 % (0-5); HEMATOCRIT 34.8 % (37-47); MEAN CORPUSCULAR HGB 26.9 PG (27.0-31.0); MEAN CORPUSCULAR HGB CONC 32.1 G/DL (33.0-37.0); MEAN PLATELET VOLUME 8.3 FL (7.4-10.4); PLATELET COUNT 235 /CUMM (130-400); RBC DISTRIBUTION WIDTH 12.7 % (11.5-14.5); RED BLOOD CELL CT 4.14 /CUMM (4.20-5.40); WHITE BLOOD CELL COUNT 5.1 /CUMM (4.8-10.8)
--- NOTE | 2016-05-21 17:10 | ULTRASOUND REPORT ---
EXAMINATION: DOPPLER VENOUS ULTRASOUND UPPER EXTREMITY, LEFT CLINICAL INFORMATION: Left upper extremity swelling. COMPARISON: None. TECHNIQUE: Grayscale, Doppler and spectral analysis of the upper extremity and neck was performed. FINDINGS: There is no evidence for a deep venous thrombosis within the visualized upper extremity and neck veins. There is normal flow, compression and augmentation. IMPRESSION: Unremarkable examination. Specifically, no evidence for DVT.
[2016-05-21 20:11] VITALS: BP 118/68
--- NOTE | 2016-05-22 14:24 | ULTRASOUND REPORT ---
EXAMINATION: LEFT UPPER EXTREMITY VENOUS ULTRASOUND CLINICAL INFORMATION: Left arm pain and swelling COMPARISON: None. TECHNIQUE: Doppler spectral analysis and color flow Doppler imaging was performed of the left upper extremity. Compression and augmentation maneuvers were performed. FINDINGS: The left internal jugular vein, subclavian vein, axillary vein, brachial vein, basilic vein, cephalic vein, and visualized forearm veins were well-identified and normal. They demonstrate normal compressibility and color fill-in. IMPRESSION: No evidence for left upper extremity deep vein thrombosis. This critical result was discussed with the ER doctor taking care of this patient immediately after the exam and it was ascertained that the content and urgency of the report was understood at the time of direct communication.
[2016-07-15] MEDS ORDERED: SINGULAIR10 M1 PO (12:24)
[2016-07-15] MEDS ORDERED: PERCOCET 10-321 EACH PO (12:24)
[2016-07-15] MEDS ORDERED: HYDROXYZINE HCL25 M2 PO (12:24)
== END 2016-05-21 20:12 ==
LOC: ERH 14:21
PROVIDERS: Student in an Organized Health Care Education/Training Program
DX: M79.602 Pain in left arm (principal); M79.89 Other specified soft tissue disorders
CPT/HCPCS: 93005; 93010; 96374; 96376

== ENCOUNTER 2016-06-06 20:59 | Emergency (ER) | payer OTHER ==
[~2016-06-06] VITALS: Ht 167.6 cm; Wt 60.8 kg
[~2016-06-06 20:59] MED LIST changes: +OXYCODONE-ACET1 EAC1 PO; +SINGULAIR10 M1 PO
[2016-06-06 21:33] LABS: ABSOLUTE BASOPHIL COUNT 0 /CUMM (0.0-0.2); ABSOLUTE EOSINOPHIL COUNT 0.1 /CUMM (0.0-0.7); ABSOLUTE GRANULOCYTE CT 1.7 /CUMM (1.4-6.5); ABSOLUTE LYMPH COUNT 1.6 /CUMM (1.2-3.4); ABSOLUTE MONOCYTE COUNT 0.4 /CUMM (0.10-0.60); BASOPHIL % 0.2 % (0.0-2.0); EOSINOPHIL % 1.9 % (0-5); GRANULOCYTE % 45.3 % (42.2-75.2); MEAN CORPUSCULAR HGB 27.2 PG (27.0-31.0); MEAN CORPUSCULAR HGB CONC 32.3 G/DL (33.0-37.0); MEAN CORPUSCULAR VOLUME 84.2 FL (81.0-99.0); MEAN PLATELET VOLUME 7.9 FL (7.4-10.4); PLATELET COUNT 241 /CUMM (130-400); RED BLOOD CELL CT 3.57 /CUMM (4.20-5.40); WHITE BLOOD CELL COUNT 3.8 /CUMM (4.8-10.8)
--- NOTE | 2016-06-06 22:54 | ULTRASOUND REPORT ---
EXAMINATION: US TRIPLEX UPPER EXTREMITY, LEFT CLINICAL INFORMATION: Left upper extremity pain and swelling. Evaluate for deep venous thrombosis. COMPARISON: Triplex ultrasound of the left upper extremity veins for 2016. TECHNIQUE: Color-flow triplex imaging with spectral analysis and compression Doppler were performed on the left upper extremity. FINDINGS: Respiratory variation, normal compression and flow are noted throughout the left upper extremity. The visualized left internal jugular, subclavian, axillary, brachial, basilic and cephalic veins demonstrate no evidence of deep venous thrombosis. IMPRESSION: Normal triplex scan without evidence of deep venous thrombosis involving the left upper extremity veins.
--- NOTE | 2016-06-06 23:47 | ED GENERAL ADULT ---
History of Present Illness General Chief Complaint: General Adult Stated Complaint: MULTI COMPLAINTS Source: patient, old records Exam Limitations: no limitations Vital Signs & Intake/Output Vital Signs & Intake/Output Vital Signs Date Time Temp Pulse Resp B/P B/P Pulse O2 O2 Flow FiO2 Mean Ox Delivery Rate 06/07 0211 97.0 82 18 125/80 100 Room Air 06/07 0103 96.4 81 18 129/82 100 Room Air 06/06 2112 98.3 81 20 131/85 100 Room Air ED Intake and Output 06/07 0000 06/06 1200 Intake Total 0 Output Total Balance 0 Intake, Oral 0 Patient 134 lb Weight Allergies Coded Allergies: ibuprofen (TRIGGERS ASTHMA, ITCHY, HIVES 11/27/15) meperidine (From DEMEROL) (itch, HIVES 11/27/15) Reconcile Medications Albuterol Sulfate (Proair Hfa) 90 MCG HFA.AER.AD 2 PUF INH Q4-6 PRN PRN SHORTNESS OF BREATH (Reported) Albuterol Sulfate 2.5 MG/3 ML (0.083 %) VIAL.NEB 1 Vial INH/DELMY Q4P PRN SHORTNESS OF BREATH (Reported) Azathioprine (Imuran) 50 MG TABLET 50 MG PO TID LUPUS (Reported) Duloxetine Hydrochloride (Cymbalta) 30 MG CAPSULE.DR 1 CAP PO BID MENTAL HEALTH (Reported) Ergocalciferol (Vitamin D2) (Vitamin D2) 50,000 UNIT CAPSULE 1 CAP PO SuTh SUPPLEMENT (Reported) Fluticasone Propionate (Flovent Hfa) 44 MCG AER.W.ADAP 2 PUF INH BID PRN ASTHMA (Reported) Hydroxychlorquine (Plaquenil) 200 MG TABLET 1 TAB PO BID LUPUS (Reported) Labetalol HCl 100 MG TABLET 1 TAB PO BID HEART (Reported) Metoclopramide HCl (Reglan) 10 MG TABLET 1 TAB PO 4 TIMES/DAY PRN nausea 30 minutes before meals and bedtime Metoclopramide HCl (Reglan) 10 MG TABLET 1 TAB PO 4 TIMES/DAY PRN nausea 30 minutes before meals and bedtime Metoclopramide HCl (Reglan) 10 MG TABLET 1 TAB PO Q6 PRN nausea Montelukast Sodium (Singulair) 10 MG TABLET 1 TAB PO DAILY ALLERGIES ( Reported) Oxycodone HCl/Acetaminophen (Oxycodone-Acetaminophen 10-325) 10 MG-325 MG TABLET 1 TAB PO Q4P PRN PAIN (Reported) Pantoprazole Sodium 40 MG TABLET.DR 1 TAB PO DAILY GI (Reported) Prednisone 20 MG TABLET 12 MG PO DAILY LUPUS (Reported) Trazodone HCl 50 MG TABLET 1 TAB PO QPM SLEEP (Reported) Warfarin Sodium (Coumadin) 10 MG TABLET 1 TAB PO DAILY HX DVT (Reported) Triage Note: PT TO ED C/O BACK, L SHOULDER, L ARM, HIPS STOMACH PAINS SINCE MONDAY. +NAUSEA, NO VOMITTING. +DIARRHEA ON MONDAY AND MONDAY. DENIES UTI S/S. CURRENT MENSES Triage Nurses Notes Reviewed? yes : No Patient currently breastfeeds: No HPI: Patient is a 26-year-old female presents with multiple complaints. Patient complaining of abdominal pain, nausea, left upper extremity pain. Symptoms onset on Monday. Patient has been taking her pain medication and antinausea medicine with no significant improvement. Patient reports the pain in her left upper extremity is a tightness and sharp/shooting sensation. Patient having difficulty extending her elbow. Pain radiates from the neck down her left upper extremity. Pain worsens with movement of her neck and movement of her left upper extremity. Patient reports that this feels similar to when she had a previous DVT in her left upper extremity. Patient takes Coumadin reports that she has been compliant with her medications. Abdominal pain is diffuse, has been for several months. Patient saw her sheriff sergeant 1-2 months ago and is being referred to a construction stonemason. Decreased appetite. Patient reports that eating and drinking causes increase in her pain. (MOHAMUD MONREAL) Past History Travel History Traveled to [place] past 21 day No Medical History Any Pertinent Medical History? 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 MOTHER (Rheumatoid arthritis). SISTER (Psoariasis). Relation not specified for: Blood clots DVT FH: diabetes mellitus FH: pancreatic cancer FH: rheumatoid arthritis Hx Contributory? No (MOHAMUD MONREAL) Review of Systems Review of Systems Constitutional: Denies: chills, fever. EENTM: Reports: no symptoms. Respiratory: Denies: cough, short of breath. Cardiovascular: Denies: chest pain. GI: Reports: abdominal pain, nausea. Denies: vomiting. Genitourinary: Reports: no symptoms. Musculoskeletal: Reports: see HPI, joint pain, neck pain. Skin: Denies: rash. Neurological/Psychological: Reports: paresthesia. Denies: headache. Hematologic/Endocrine: Denies: bruising, bleeding. Immunologic/Allergic: Denies: splenectomy. (MOHAMUD MONREAL) Physical Exam Physical Exam General Appearance: alert, awake Head: atraumatic, normal appearance Eyes: Bilateral: normal appearance, PERRL, EOMI. Ears, Nose, Throat: normal pharynx, normal ENT inspection, hearing grossly normal Neck: normal inspection, supple, full range of motion, tender left lateral paraspinal muscles Respiratory: normal breath sounds, chest non-tender, no respiratory distress, lungs clear Cardiovascular: regular rate/rhythm Peripheral Pulses: 2+ radial (L), 2+ ulnar (L) Gastrointestinal: normal bowel sounds, soft, mild diffuse abdominal tenderness Back: normal inspection, normal range of motion Extremities: swelling left upper extremity. Mild swelling left elbow. Full flexion of left elbow. Extension limited to approximately 135 degrees of active extension. No redness or warmth to the left elbow. Neurologic/Psych: awake, alert, oriented x 3, normal mood/affect, talent development director II-XII nml as tested Skin: intact, normal color, warm/dry Lymphatic: no anterior cervical vinayak Core Measures ACS in differential dx? No CVA/TIA Diagnosis: No Severe Sepsis Present: No Septic Shock Present: No (MOHAMUD MONREAL) Progress Differential Diagnoses I considered the following diagnoses in my evaluation of the patient: lupus exacerbation, chronic pain syndrome, CVA, cervical radiculopathy, dvt, septic joint, intra-abdominal infection Plan of Care: Orders Procedure Date/time Status Add-on Test (ER Only) 06/07 2335 Active PROTHROMBIN TIME 06/06 2121 Complete HUMAN BETA HCG SCREEN 06/06 2116 Complete COMPREHENSIVE METABOLIC PANEL 06/06 2116 Complete CBC WITHOUT DIFFERENTIAL 06/06 2116 Complete Laboratory Tests 06/06/162121: Anion Gap 13, Estimated GFR > 60, BUN/Creatinine Ratio 11.7, Glucose 102 H, Calcium 9.1, Total Bilirubin 0.4, AST 24, ALT 22, Alkaline Phosphatase 53, Total Protein 7.8, Albumin 3.7, Globulin 4.1, Albumin/Globulin Ratio 0.9 L, Total Beta HCG NEGATIVE, PT 13.3 H, INR 1.27 H, CBC w Diff NO MAN DIFF REQ, RBC 3.57 L, MCV 84.2, MCH 27.2, RDW 13.0, MPV 7.9, Gran % 45.3, Lymphocytes % 43.1, Monocytes % 9.5 H, Eosinophils % 1.9, Basophils % 0.2, Absolute Granulocytes 1.7, Absolute Lymphocytes 1.6, Absolute Monocytes 0.4, Absolute Eosinophils 0.1, Absolute Basophils 0, PUBS MCHC 32.3 L 06/07/2016 1:15:23 AM; results of labs and imaging discussed with the patient. Patient nontoxic appearing. Appears stable for discharge with close follow-up with her sheriff sergeant. Discussed subtherapeutic INR with patient. Patient directed to take Lovenox for the next 3 days as she increases her Coumadin dose and to have her INR rechecked. (MOHAMUD MONREAL) Diagnostic Imaging: Viewed by Me: CT Scan, Ultrasound. Discussed w/RAD: CT Scan, Ultrasound. Radiology Impression: PATIENT: RAJEEV GLASER PRESENT AGE: 26 PATIENT ACCOUNT NO: [id number] : 91 LOCATION: [facility] ORDERING PHYSICIAN: CHANG LE MD SERVICE DATE: 06/06/16 EXAM TYPE: US - US-DUPLEX VENOUS EXTREM UNI EXAMINATION: US TRIPLEX UPPER EXTREMITY, LEFT CLINICAL INFORMATION: Left upper extremity pain and swelling. Evaluate for deep venous thrombosis. COMPARISON: Triplex ultrasound of the left upper extremity veins for 2016. TECHNIQUE: Color-flow triplex imaging with spectral analysis and compression Doppler were performed on the left upper extremity. FINDINGS: Respiratory variation, normal compression and flow are noted throughout the left upper extremity. The visualized left internal jugular, subclavian, axillary, brachial, basilic and cephalic veins demonstrate no evidence of deep venous thrombosis. IMPRESSION: Normal triplex scan without evidence of deep venous thrombosis involving the left upper extremity veins. DICTATED BY: RENE RESENDIZ MD DATE/TIME DICTATED:06/06/162248 COLOR MATCHER:DÍAZ DATE/TIME TRANSCRIBED:06/06/162248 CONFIDENTIAL, DO NOT COPY WITHOUT APPROPRIATE AUTHORIZATION. <Electronically signed in Other Vendor System> SIGNED BY: RENE RESENDIZ MD 06/06/162253, PATIENT: RAJEEV GLASER PRESENT AGE: 26 PATIENT ACCOUNT NO : [id number] : 91 LOCATION: [facility] ORDERING PHYSICIAN: MOHAMUD FELIX SERVICE DATE: 06/06/16 EXAM TYPE: CAT - CT CERV SPINE WO IV CONTRAST EXAMINATION: CT CERVICAL SPINE WITHOUT CONTRAST CLINICAL INFORMATION: Severe left upper extremity pain and paresthesias COMPARISON: None TECHNIQUE: Multidetector helical imaging was performed through the cervical spine. Coronal and sagittal reformatted images were created. DLP: 335.65 mGy-cm FINDINGS: There is anatomic alignment of the cervical vertebral bodies and posterior elements. Vertebral body heights and intervertebral disc spaces are maintained. No acute fracture is seen. No prevertebral soft tissue swelling. No significant bony foraminal narrowing is identified throughout the cervical spine. Although assessment of soft tissue structures is somewhat limited on CT, no significant central canal narrowing is seen. Bilateral cervical ribs are noted. IMPRESSION: 1. No acute findings or significant degenerative changes identified. If clinically warranted, evaluation with MRI may allow for improved evaluation of soft tissue structures. 2. Bilateral cervical ribs. DICTATED BY: KIM KHAN MD DATE/TIME DICTATED:06/07/1648 COLOR MATCHER:DÍAZ DATE/TIME TRANSCRIBED:06/07/1648 CONFIDENTIAL, DO NOT COPY WITHOUT APPROPRIATE AUTHORIZATION. <Electronically signed in Other Vendor System> SIGNED BY: KIM KHAN MD 06/07/16 010 Initial ED EKG: none Hand-Off Endorsed To: CHANG LE MD Endorsed Time: 99 Pending: other (re-eval/symptom management) (MOHAMUD MONREAL) Departure Departure Disposition: HOME OR SELF CARE Condition: Stable Clinical Impression Primary Impression: Lupus Secondary Impressions: Abdominal pain, unspecified site, Cervical radiculopathy, Subtherapeutic international normalized ratio (INR) Referrals: UNKNOWN (PCP/Family) Additional Instructions: Your INR was 1.27. Take 15mg of coumadin for 2 days, your INR should be rechecked on . Use your lovenox for the next 2 days. Increase your prednisone to 20mg for the next 3 days then return to your regular dose. Follow up with your doctor this week for further evaluation. Call in the morning for appointment. Return to the ER if worsening of symptoms. Departure Forms: Customer Survey General Discharge Information Prescriptions: Current Visit Scripts Metoclopramide HCl (Reglan) 1 TAB PO 4 TIMES/DAY PRN nausea #30 TAB 30 minutes before meals and bedtime Metoclopramide HCl (Reglan) 1 TAB PO 4 TIMES/DAY PRN nausea #30 TAB 30 minutes before meals and bedtime Metoclopramide HCl (Reglan) 1 TAB PO Q6 PRN nausea #12 TAB (MOHAMUD MONREAL) PA/CAR PUSHER Co-Sign Statement Statement: ED Attending supervision documentation- [] I saw and evaluated the patient. I have also reviewed all the pertinent lab results and diagnostic results. I agree with the findings and the plan of care as documented in the PA's/CAR PUSHER's documentation. [x] I have reviewed the ED Record and agree with the PA's/CAR PUSHER's documentation. [] Additions or exceptions (if any) to the PAs/CAR PUSHER's note and plan are summarized below: [] ([place],CHANG Link) Critical Care Note Critical Care Note Critical Care Time: non-applicable (MOHAMUD MONREAL)
[2016-06-06 23:56] LABS: PT 13.3 SEC (9.4-12.5)
--- NOTE | 2016-06-07 01:02 | CT SCAN REPORT ---
EXAMINATION: CT CERVICAL SPINE WITHOUT CONTRAST CLINICAL INFORMATION: Severe left upper extremity pain and paresthesias COMPARISON: None TECHNIQUE: Multidetector helical imaging was performed through the cervical spine. Coronal and sagittal reformatted images were created. DLP: 335.65 mGy-cm FINDINGS: There is anatomic alignment of the cervical vertebral bodies and posterior elements. Vertebral body heights and intervertebral disc spaces are maintained. No acute fracture is seen. No prevertebral soft tissue swelling. No significant bony foraminal narrowing is identified throughout the cervical spine. Although assessment of soft tissue structures is somewhat limited on CT, no significant central canal narrowing is seen. Bilateral cervical ribs are noted. IMPRESSION: 1. No acute findings or significant degenerative changes identified. If clinically warranted, evaluation with MRI may allow for improved evaluation of soft tissue structures. 2. Bilateral cervical ribs.
[2016-06-07] MEDS ORDERED: REGLAN10 M1 PO ×3 (01:17→02:16)
[2016-06-07 02:11] VITALS: BP 125/80
[2016-07-15] MEDS ORDERED: SINGULAIR10 M1 PO (12:24)
[2016-07-15] MEDS ORDERED: PERCOCET 10-321 EACH PO (12:24)
[2016-07-15] MEDS ORDERED: HYDROXYZINE HCL25 M2 PO (12:24)
== END 2016-06-07 02:25 ==
LOC: ERH 20:59
PROVIDERS: Pediatrics
DX: L93.0 Discoid lupus erythematosus (principal); M54.12 Radiculopathy, cervical region; R10.9 Unspecified abdominal pain; Z79.01 Long term (current) use of anticoagulants; R79.1 Abnormal coagulation profile
CPT/HCPCS: 96374; 96375; J2765

== ENCOUNTER 2016-06-14 23:27 | Emergency (ER) | payer OTHER ==
[~2016-06-14] VITALS: Ht 167.6 cm; Wt 60.8 kg
--- NOTE | 2016-06-15 00:42 | ED GENERAL ADULT ---
History of Present Illness General Chief Complaint: General Adult Stated Complaint: "IM HAVING SEVERE PAIN FROM HEAD TO TOES" Source: patient, old records Exam Limitations: no limitations Vital Signs & Intake/Output Vital Signs & Intake/Output Vital Signs Date Time Temp Pulse Resp B/P B/P Pulse O2 O2 Flow FiO2 Mean Ox Delivery Rate 06/15 0000 97 Room Air 06/14 2350 98.3 89 16 125/86 97 Room Air ED Intake and Output 06/15 0000 06/14 1200 Intake Total Output Total Balance Patient 134 lb Weight Allergies Coded Allergies: ibuprofen (TRIGGERS ASTHMA, ITCHY, HIVES 11/27/15) meperidine (From DEMEROL) (itch, HIVES 11/27/15) Reconcile Medications Albuterol Sulfate (Proair Hfa) 90 MCG HFA.AER.AD 2 PUF INH Q4-6 PRN PRN SHORTNESS OF BREATH (Reported) Albuterol Sulfate 2.5 MG/3 ML (0.083 %) VIAL.NEB 1 Vial INH/DELMY Q4P PRN SHORTNESS OF BREATH (Reported) Azathioprine (Imuran) 50 MG TABLET 50 MG PO TID LUPUS (Reported) Duloxetine Hydrochloride (Cymbalta) 30 MG CAPSULE.DR 1 CAP PO BID MENTAL HEALTH (Reported) Ergocalciferol (Vitamin D2) (Vitamin D2) 50,000 UNIT CAPSULE 1 CAP PO SuTh SUPPLEMENT (Reported) Fluticasone Propionate (Flovent Hfa) 44 MCG AER.W.ADAP 2 PUF INH BID PRN ASTHMA (Reported) Hydroxychlorquine (Plaquenil) 200 MG TABLET 1 TAB PO BID LUPUS (Reported) Labetalol HCl 100 MG TABLET 1 TAB PO BID HEART (Reported) Metoclopramide HCl (Reglan) 10 MG TABLET 1 TAB PO 4 TIMES/DAY PRN nausea 30 minutes before meals and bedtime Metoclopramide HCl (Reglan) 10 MG TABLET 1 TAB PO 4 TIMES/DAY PRN nausea 30 minutes before meals and bedtime Metoclopramide HCl (Reglan) 10 MG TABLET 1 TAB PO Q6 PRN nausea Montelukast Sodium (Singulair) 10 MG TABLET 1 TAB PO DAILY ALLERGIES ( Reported) Oxycodone HCl/Acetaminophen (Oxycodone-Acetaminophen 10-325) 10 MG-325 MG TABLET 1 TAB PO Q4P PRN PAIN (Reported) Pantoprazole Sodium 40 MG TABLET.DR 1 TAB PO DAILY GI (Reported) Prednisone 20 MG TABLET 12 MG PO DAILY LUPUS (Reported) Trazodone HCl 50 MG TABLET 1 TAB PO QPM SLEEP (Reported) Warfarin Sodium (Coumadin) 10 MG TABLET 1 TAB PO DAILY HX DVT (Reported) Triage Note: 26yo FEMALE TO TRIAGE W/CO LOW BACK PAIN THAT RADIATES TO ABD X 5 D. STATES HX OF LUPUS AND TAKED OXY 10MG W/OUT RELIEF. ALSO CO URGENCY AND FREQUENCY. Triage Nurses Notes Reviewed? yes : No Patient currently breastfeeds: No HPI: Patient presents for evaluation of severe pain "from head to toe". The pain began about 4 days ago, gradual in onset. She states today however things "are different". Whereas her back pain is usually diffuse throughout the entire back today it is a lower bilateral back pain. In addition she is also experiencing abdominal heaviness "like it's expanding". He is also experiencing a pain in the left hip that radiates down to her left toes. In addition she has been having chest tightness and urinary frequency with yellow discoloration of her urine today. She also had heart palpitations today and 2 episodes of nonbloody diarrhea. Although she has not had any vomiting she has felt nauseous. She took Phenergan last night to help her go to sleep but hasn't taken any antiemetics today. She saw her pain management doctor within the past week but hasn't followed up with her primary care physician or her regional geodetic advisor since her last emergency department visit on June 06. Past History Travel History Traveled to [place] past 21 day No Medical History Any Pertinent Medical History? 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 MOTHER (Rheumatoid arthritis). SISTER (Psoariasis). Relation not specified for: Blood clots DVT FH: diabetes mellitus FH: pancreatic cancer FH: rheumatoid arthritis Hx Contributory? No Review of Systems Review of Systems Constitutional: Reports: no symptoms. EENTM: Reports: no symptoms. Respiratory: Reports: no symptoms. Cardiovascular: Reports: chest pain. GI: Reports: see HPI. Genitourinary: Reports: see HPI. Musculoskeletal: Reports: see HPI. Skin: Reports: no symptoms. Neurological/Psychological: Reports: no symptoms. Hematologic/Endocrine: Reports: no symptoms. Immunologic/Allergic: Reports: no symptoms. All Other Systems: Reviewed and Negative Physical Exam Physical Exam General Appearance: SEE BELOW Comments: Gen.: Well-nourished, well-developed, no acute respiratory distress. Head: Normocephalic, atraumatic. Eyes: Normal inspection bilaterally Ears: Normal inspection bilaterally Nose: Normal inspection Throat/mouth : Moist mucosa Neck: Supple, full range of motion, no goiter Heart: Regular rate and rhythm, no murmurs rubs or gallops Lungs: Clear to auscultation bilaterally with normal air entry Chest: Nontender Back: Normal range of motion Abdomen: Soft, diffuse tenderness with brief voluntary guarding but no rebound, nondistended, normal bowel sounds, no palpable masses Extremities: Normal range of motion grossly, equal radial pulses, no cyanosis clubbing or edema Neurologic: Cranial nerves grossly intact, speech is clear Skin: warm and dry Psychiatric: Calm, cooperative, no apparent delusions or hallucinations Core Measures ACS in differential dx? No CVA/TIA Diagnosis: No Severe Sepsis Present: No Septic Shock Present: No Progress Differential Diagnoses I considered the following diagnoses in my evaluation of the patient: Occult infection, acute coronary syndrome, pneumonia, small bowel obstruction, gastroenteritis, musculoskeletal back pain, urinary tract infection/ pyelonephritis Plan of Care: Orders Procedure Date/time Status Add-on Test (ER Only) 06/15 40 Active TROPONIN LEVEL 06/15 40 Complete LIPASE 06/15 40 Complete HIGH SENSITIVITY CRP 06/15 40 Complete WESTERGREN SED RATE 06/15 40 Active COMPREHENSIVE METABOLIC PANEL 06/15 40 Complete CBC WITHOUT DIFFERENTIAL 06/15 40 Active EKG 06/15 40 Active CULTURE,URINE 06/14 2350 Active URINE 06/14 2350 Complete URINALYSIS 06/14 2350 Complete Current Medications Sig/Ariel Start time Last Medication Dose Stop Time Status Admin Ciprofloxacin 500 MG ONCE ONE 06/15 214 UNVr (Cipro) 06/16 215 Dexamethasone 4 MG ONCE ONE 06/15 214 UNVr (Decadron) 06/16 215 Hydromorphone HCl 1 MG ONCE ONE 06/15 214 UNVr (Dilaudid) 06/16 215 Laboratory Tests 06/15/16 0110: Anion Gap 14, Estimated GFR > 60, BUN/Creatinine Ratio 20.0, Glucose 84, Calcium 9.3, Total Bilirubin 0.4, AST 21, ALT 29, Alkaline Phosphatase 62, Troponin I < 0.01, C-React Prot High Sens 1.2, Total Protein 8.4 H, Albumin 4.2, Globulin 4.2, Albumin/Globulin Ratio 1.0 L, Lipase 102, CBC w Diff NO MAN DIFF REQ, RBC 3.85 L, MCV 82.5, MCH 26.9 L, RDW 12.7, MPV 8.3, Gran % 68.8, Lymphocytes % 20.7, Monocytes % 6.8, Eosinophils % 0.4, Basophils % 3.3 H, Absolute Granulocytes 3.1, Absolute Lymphocytes 0.9 L, Absolute Monocytes 0.3, Absolute Eosinophils 0, Absolute Basophils 0.2, PUBS MCHC 32.6 L, ESR [place]gren Pending 06/15/16 0000: Urine Color YEL, Urine Clarity HAZY H, Urine pH 6.0, Ur Specific [place] >= 1.030, Urine Protein 100 H, Urine Ketones NEG, Urine Nitrite NEG, Urine Bilirubin NEG, Urine Urobilinogen 0.2, Ur Leukocyte Esterase NEG, Ur Microscopic SEDIMENT EXAMINED, Urine RBC 25-50 H, Urine WBC RARE, Ur Epithelial Cells MOD H, Urine Bacteria FEW H, Urine Mucus MOD H, Urine Hemoglobin LARGE H, Urine Glucose NEG, Urine Test NEGATIVE Microbiology 06/14 2350 URINE ROUT: Urine Culture - RECD Initial ED EKG: NSR, rate (56), LEFTWARD AXIS Prior EKG: unchanged Comments: 06/15/2016 2:12:14 AM I have updated DAYONA on test results. The cause of her pain is unclear at this point but is likely attributable to her lupus exacerbated by a urinary tract infection. Plan Decadron, Cipro and follow-up. Departure Departure Disposition: HOME OR SELF CARE Condition: Stable Clinical Impression Primary Impression: Exacerbation of systemic lupus Secondary Impressions: UTI (urinary tract infection) Qualifiers: Urinary tract infection type: acute cystitis Hematuria presence: with hematuria Qualified Code: N30.01 - Acute cystitis with hematuria Referrals: MIRTHA LOBATO (PCP/Family) Additional Instructions: Cipro as prescribed for your urinary tract infection. Continue your current medications. Follow-up with your lupus doctor within the next 48 hours for reevaluation. Return if any concerns or sudden worsening. Please note that there might be incidental findings in your evaluation that are unrelated to the current emergency department visit. Please notify your primary care doctor about this emergency department visit in order to obtain and review all of the testing performed so that these incidental findings can be monitored as needed. If you had an x-ray performed, please understand that some fractures may not be seen on the initial set of x-rays. If your symptoms persist you might need a repeat set of x-rays to check for such a fracture. If you had a laceration evaluated, please understand that foreign bodies such as glass or wood may not be visible to the naked eye or on plain x-rays. If the wound becomes red, swollen, increasingly more painful or if there is any drainage from the wound, please have it reevaluated by a physician for the possibility of a retained foreign body. Thank you for choosing the [facility] Emergency Department for your care. It was a pleasure to serve you today. Davie Bay M.D. [facility] Departure Forms: Customer Survey General Discharge Information Critical Care Note Critical Care Note Critical Care Time: non-applicable
[2016-06-15 01:17] LABS: ABSOLUTE BASOPHIL COUNT 0.2 /CUMM (0.0-0.2); ABSOLUTE EOSINOPHIL COUNT 0 /CUMM (0.0-0.7); ABSOLUTE GRANULOCYTE CT 3.1 /CUMM (1.4-6.5); ABSOLUTE LYMPH COUNT 0.9 /CUMM (1.2-3.4); ABSOLUTE MONOCYTE COUNT 0.3 /CUMM (0.10-0.60); BASOPHIL % 3.3 % (0.0-2.0); EOSINOPHIL % 0.4 % (0-5); GRANULOCYTE % 68.8 % (42.2-75.2); HEMATOCRIT 31.7 % (37-47); MEAN CORPUSCULAR HGB 26.9 PG (27.0-31.0); MEAN CORPUSCULAR HGB CONC 32.6 G/DL (33.0-37.0); MEAN CORPUSCULAR VOLUME 82.5 FL (81.0-99.0); MEAN PLATELET VOLUME 8.3 FL (7.4-10.4); PLATELET COUNT 271 /CUMM (130-400); RBC DISTRIBUTION WIDTH 12.7 % (11.5-14.5); RED BLOOD CELL CT 3.85 /CUMM (4.20-5.40); WHITE BLOOD CELL COUNT 4.5 /CUMM (4.8-10.8)
[2016-06-15] MEDS ORDERED: CIPRO500 M1 PO (02:38)
[2016-06-15 02:44] VITALS: BP 122/70
[2016-07-15] MEDS ORDERED: PERCOCET 10-321 EACH PO (12:24)
[2016-07-15] MEDS ORDERED: HYDROXYZINE HCL25 M2 PO (12:24)
[2016-07-15] MEDS ORDERED: SINGULAIR10 M1 PO (12:24)
== END 2016-06-15 02:43 ==
LOC: ERH 23:27
PROVIDERS: Emergency Medicine
DX: M32.9 Systemic lupus erythematosus, unspecified (principal); N39.0 Urinary tract infection, site not specified
CPT/HCPCS: 81001; 81025; 87086; 93005; 93010

== ENCOUNTER 2016-06-18 17:41 | Emergency (ER) | payer OTHER ==
[~2016-06-18] VITALS: Ht 167.6 cm; Wt 60.8 kg
[~2016-06-18 17:41] MED LIST changes: +CIPRO500 M1 PO
--- NOTE | 2016-06-18 18:24 | ED GENERAL ADULT ---
History of Present Illness General Chief Complaint: General Adult Stated Complaint: FLANK PAIN,BLADDER PAIN/PRESSURE,BLOOD IN STOOL Source: patient, old records Exam Limitations: no limitations Vital Signs & Intake/Output Vital Signs & Intake/Output Vital Signs Date Time Temp Pulse Resp B/P B/P Pulse O2 O2 Flow FiO2 Mean Ox Delivery Rate 06/19 2003 97.9 60 16 131/101 06/18 1830 96 Room Air 06/18 1748 97.8 92 18 125/91 98 Room Air Allergies Coded Allergies: ibuprofen (TRIGGERS ASTHMA, ITCHY, HIVES 11/27/15) meperidine (From DEMEROL) (itch, HIVES 11/27/15) Reconcile Medications Albuterol Sulfate (Proair Hfa) 90 MCG HFA.AER.AD 2 PUF INH Q4-6 PRN PRN SHORTNESS OF BREATH (Reported) Albuterol Sulfate 2.5 MG/3 ML (0.083 %) VIAL.NEB 1 Vial INH/DELMY Q4P PRN SHORTNESS OF BREATH (Reported) Azathioprine (Imuran) 50 MG TABLET 50 MG PO TID LUPUS (Reported) Ciprofloxacin HCl (Cipro) 500 MG TABLET 1 TAB PO BID URINE INFECTION Duloxetine Hydrochloride (Cymbalta) 30 MG CAPSULE.DR 1 CAP PO BID MENTAL HEALTH (Reported) Ergocalciferol (Vitamin D2) (Vitamin D2) 50,000 UNIT CAPSULE 1 CAP PO SuTh SUPPLEMENT (Reported) Fluticasone Propionate (Flovent Hfa) 44 MCG AER.W.ADAP 2 PUF INH BID PRN ASTHMA (Reported) Hydroxychlorquine (Plaquenil) 200 MG TABLET 1 TAB PO BID LUPUS (Reported) Labetalol HCl 100 MG TABLET 1 TAB PO BID HEART (Reported) Metoclopramide HCl (Reglan) 10 MG TABLET 1 TAB PO 4 TIMES/DAY PRN nausea 30 minutes before meals and bedtime Metoclopramide HCl (Reglan) 10 MG TABLET 1 TAB PO 4 TIMES/DAY PRN nausea 30 minutes before meals and bedtime Metoclopramide HCl (Reglan) 10 MG TABLET 1 TAB PO Q6 PRN nausea Montelukast Sodium (Singulair) 10 MG TABLET 1 TAB PO DAILY ALLERGIES ( Reported) Oxycodone HCl/Acetaminophen (Oxycodone-Acetaminophen 10-325) 10 MG-325 MG TABLET 1 TAB PO Q4P PRN PAIN (Reported) Pantoprazole Sodium 40 MG TABLET.DR 1 TAB PO DAILY GI (Reported) Prednisone 20 MG TABLET 12 MG PO DAILY LUPUS (Reported) Trazodone HCl 50 MG TABLET 1 TAB PO QPM SLEEP (Reported) Warfarin Sodium (Coumadin) 10 MG TABLET 1 TAB PO DAILY HX DVT (Reported) Triage Note: PT WITH MULTIPLE PAIN COMPLAINTS, STATES THAT SHE WAS SEEN 4 DAYS AGO FOR PAIN DIAGNOSED WITH UTI, STATES THAT ROSALVA HAS BEEN TAKING CIPRO WITH NO RELIEF, PAIN IN HER HIPS,ABD,BACK,LEGS,SHOOTING PAIN IN HER ARMS. PT ALSO STATES THAT SHE HAD BLOOD IN HER STOOL LAST PM. TOOK HER PRESCRIBED PERCOCET 10MG 0630 THIS AM Triage Nurses Notes Reviewed? yes Onset: Gradual Duration: week(s): (1), constant Timing: recent history Injury Environment: home Severity: moderate Severity Numbers: 7 No Modifying Factors: none Associated Symptoms: DENIES LMP (ages 10-50): 06/03/16 : No Patient currently breastfeeds: No HPI: 26 Year old female with history of dvt on coumadin 10mg, lupus, kidney stones presents to the ER complaining of moderate to severe int r flank pain rad into her abd and back x 1 week. she was seen in this er 4 days ago for similar symptoms and has been seen multiple times in the past for the same. she has been complaint with her medication including her percocet without improvement in pain. she reports to having a bloody bowel movement last night, however had a normal bm this am. no n/v, no weight loss. she states she has been taking cipro for a uti however sx persist. no modifying factors or associated sx otherwise. (BRYANNA MARTIENZ) Past History Travel History Traveled to [place] past 21 day No Medical History Any Pertinent Medical History? 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 MOTHER (Rheumatoid arthritis). SISTER (Psoariasis). Relation not specified for: Blood clots DVT FH: diabetes mellitus FH: pancreatic cancer FH: rheumatoid arthritis Hx Contributory? No (BRYANNA MARTINEZ) Review of Systems Review of Systems Constitutional: Reports: see HPI. All Other Systems: Reviewed and Negative Comments Review of systems: See HPI, All other systems negative. Constitutional, no chills no fever, no malaise no weight loss HEENT: No visual changes no sore throat no congestion, no ear pain Cardiovascular: No chest pain , no palpitation Skin: no rashes, no change in skin Respiratory: No dyspnea no cough no sputum no hemoptysis GI: No nausea no vomiting, no diarrhea, no bloating/constipation : No dysuria No hematuria, no frequency, no discharge Muscle skeletal: No joint pain, no joint swelling, no back pain, no neck pain, Neurologic: no headache Psych: No stress. Heme/endocrine: No bruising no bleeding Immunology: No lymphadenopathy (BRYANNA MARTINEZ) Physical Exam Physical Exam General Appearance: well developed/nourished, no apparent distress, alert, awake Comments: Well-developed well-nourished person in no acute distress HEENT: Normal EENT exam; PERRL, EOMI, HEAD is atraumatic. moist mucous membranes. Neck: Supple, normal range of motion Back: Nontender, no CVA tenderness. Full range of motion Cardiovascular: Regular rate and rhythms no murmurs rubs Respiratory: No respiratory distress. Patient speaking in full complete sentences. Breath sounds clear to auscultation bilaterally: NO W/R/R Abdomen: Soft, DIFFUSELY TENDER nondistended, no appreciable organomegaly. Normal bowel sounds. No rebound/guarding, No appreciable enlargement of the abdominal aorta, No ascites. Extremity: No edema, full range of motion of extremities Neuro: Alert oriented x3, motor sensory normal, There were no obvious focal neurologic abnormalities. Skin: No appreciable rash on exposed skin, skin is warm and dry. Psych: Mood and affect is normal, memory and judgment is normal. Core Measures ACS in differential dx? No CVA/TIA Diagnosis: No Severe Sepsis Present: No Septic Shock Present: No (ARMANDO FELIX,BRYANNA) Progress Differential Diagnoses I considered the following diagnoses in my evaluation of the patient: LUPUS EXACERBATION, CHRONIC PAIN SYNDROME, KIDNEY STONES, UTI, PYELO, COLITIS, IBS, DEHYDRATION, ANEMIA Plan of Care: Orders Procedure Date/time Status URINALYSIS 06/18 1822 Complete PROTHROMBIN TIME 06/18 1822 Complete COMPREHENSIVE METABOLIC PANEL 06/18 1822 Complete CBC WITHOUT DIFFERENTIAL 06/18 1822 Complete Laboratory Tests 06/18/161931: Urinalysis MOD H, Urine Color YEL, Urine Clarity CLEAR, Urine pH 7.0, Ur Specific [facility] 1.020, Urine Protein 30 H, Urine Ketones NEG, Urine Nitrite NEG, Urine Bilirubin NEG, Urine Urobilinogen 0.2, Ur Leukocyte Esterase NEG, Ur Microscopic SEDIMENT EXAMINED, Urine WBC RARE, Ur Epithelial Cells FEW, Urine Bacteria FEW H, Urine Mucus MOD H, Urine Hemoglobin NEG, Urine Glucose NEG 06/18/16 1845: Anion Gap 12, Estimated GFR > 60, BUN/Creatinine Ratio 22.0, Glucose 77, Calcium 9.8, Total Bilirubin 0.6, AST 26, ALT 30, Alkaline Phosphatase 59, Total Protein 8.5 H, Albumin 4.2, Globulin 4.3 H, Albumin/Globulin Ratio 1.0 L, PT 14.3 H, INR 1.37 H, CBC w Diff NO MAN DIFF REQ, RBC 3.93 L, MCV 83.4, MCH 27.4, RDW 13.0, MPV 9.0, Gran % 54.9, Lymphocytes % 27.2, Monocytes % 16.2 H, Eosinophils % 1.1, Basophils % 0.6, Absolute Granulocytes 2.7, Absolute Lymphocytes 1.3, Absolute Monocytes 0.8 H, Absolute Eosinophils 0.1, Absolute Basophils 0, PUBS MCHC 32.9 L LABS ORDERED, OLD RECORDS REVIEWED, PT MED WITH DILAUDID 1MG IV. Urine culture from previous visit showed no growth CASE D/W DR GROSS AGREES WITH PLAN 06/18/2016 7:46:42 PM repeat evaluation she reports improvement in symptoms with Dilaudid I discussed with the patient at length all of their results. I had an extensive conversation regarding need for close follow up with their primary care physician this week as well as return precautions. I answered all of their questions, they feel comfortable with the plan and follow-up care. (ARMANDO FELIX,BRYANNA) Diagnostic Imaging: Viewed by Me: CT Scan. Discussed w/RAD: CT Scan. Radiology Impression: PATIENT: RAJEEV GLASER PRESENT AGE: 26 PATIENT ACCOUNT NO: [id number] : 91 LOCATION: [facility] ORDERING PHYSICIAN: BRYANNA FELIX SERVICE DATE: 06/18/16 EXAM TYPE: CAT - CT ABD & PELVIS W/O IV CONTRAS EXAMINATION: CT ABDOMEN AND PELVIS WITHOUT CONTRAST CLINICAL INFORMATION: Diarrhea. Right flank pain. Bright red blood per rectum. COMPARISON: CT abdomen and pelvis 11/27/2015. TECHNIQUE: Multidetector volumetric imaging was performed from the superior aspect of the liver through the pubic symphysis. Sagittal and coronal reformatted images were obtained on the technologist's workstation. DLP: 229 mGy-cm. FINDINGS: LUNG BASES: Mild subsegmental atelectasis at the left lung base. No pleural effusion. LIVER, GALLBLADDER, AND BILIARY TREE: The liver is normal in size, shape, and attenuation. No focal hepatic lesion or biliary ductal dilatation is present. The gallbladder is unremarkable with no evidence of radiopaque gallstones, gallbladder wall thickening, or obvious pericholecystic inflammatory changes. PANCREAS: Unremarkable. SPLEEN: Unremarkable. ADRENAL GLANDS: Unremarkable. KIDNEYS AND URETERS: No hydronephrosis. There are bilateral punctate renal calculi which measure less than 0.4 cm in diameter. No ureteral calculus demonstrated. No suspicious renal mass. BLADDER: Unremarkable. GASTROINTESTINAL TRACT: Bowel gas pattern is nonobstructive. No evidence of acute bowel inflammation. The appendix is normal. ABDOMINAL WALL: No significant hernia is appreciated. LYMPH NODES: No pathologically enlarged lymph nodes are demonstrated. VASCULAR: Unremarkable. PELVIC VISCERA: Small volume of free pelvic fluid measuring 22 Hounsfield units; note should be made that similar fluid was noted in the pelvis on prior CT scan 11/2015. No convincing suspicious ovarian or adnexal lesion. OSSEOUS STRUCTURES: No acute osseous abnormalities. Postprocedural changes from left proximal femoral cortication noted. IMPRESSION: 1. No acute bowel pathology. 2. Punctate bilateral nonobstructing renal calculi. No ureteral calculus demonstrated. 3. Nonspecific small volume of free fluid in the pelvis. This may reflect physiologic sequela of the patient's menstrual cycle. Note should be made that a similar small volume of free fluid was noted on CT scan 11/2015. DICTATED BY: HAL DE PAZ MD DATE/TIME DICTATED:06/18/161927 SUBSTATION WIREMAN:SIVAKUMAR DATE/TIME TRANSCRIBED:06/18/161927 CONFIDENTIAL, DO NOT COPY WITHOUT APPROPRIATE AUTHORIZATION. <Electronically signed in Other Vendor System> SIGNED BY: HAL DE PAZ MD 06/18/161943 Initial ED EKG: none (BRYANNA MARTINEZ) Departure Departure Time of Disposition: 2004 Disposition: HOME OR SELF CARE Condition: Stable Clinical Impression Primary Impression: Abdominal pain Secondary Impressions: Subtherapeutic international normalized ratio (INR) Referrals: MIRTHA LOBATO (PCP/Family) Additional Instructions: FOLLOW UP WITH YOUR PAIN MANAGEMENT PHYSICIAN THIS WEEK YOU MAY NEED ADJUSTMENT IN YOUR PAIN MEDICATION. COUMADIN 15MG TODAY AND TOMORROW. take coumadin 10mg starting . FOLLOW UP WITH YOUR PHYSICIAN TO HAVE YOUR COUMADIN LEVEL RECHECKED ON MONDAY Departure Forms: Customer Survey General Discharge Information (BRYANNA MARTINEZ) PA/ASSEMBLY ASSOCIATE Co-Sign Statement Statement: ED Attending supervision documentation- I saw and evaluated the patient. I have also reviewed all the pertinent lab results and diagnostic results. I agree with the findings and the plan of care as documented in the PA's/ASSEMBLY ASSOCIATE's documentation. x I have reviewed the ED Record and agree with the PA's/ASSEMBLY ASSOCIATE's documentation. [] Additions or exceptions (if any) to the PAs/ASSEMBLY ASSOCIATE's note and plan are summarized below: [] (RENATO DEL VALLE,DUNCAN) Critical Care Note Critical Care Note Critical Care Time: non-applicable (BRYANNA MARTINEZ)
[2016-06-18 18:57] LABS: ABSOLUTE BASOPHIL COUNT 0 /CUMM (0.0-0.2); ABSOLUTE EOSINOPHIL COUNT 0.1 /CUMM (0.0-0.7); ABSOLUTE GRANULOCYTE CT 2.7 /CUMM (1.4-6.5); ABSOLUTE LYMPH COUNT 1.3 /CUMM (1.2-3.4); ABSOLUTE MONOCYTE COUNT 0.8 /CUMM (0.10-0.60); BASOPHIL % 0.6 % (0.0-2.0); EOSINOPHIL % 1.1 % (0-5); GRANULOCYTE % 54.9 % (42.2-75.2); HEMATOCRIT 32.8 % (37-47); MEAN CORPUSCULAR HGB 27.4 PG (27.0-31.0); MEAN CORPUSCULAR HGB CONC 32.9 G/DL (33.0-37.0); MEAN CORPUSCULAR VOLUME 83.4 FL (81.0-99.0); PLATELET COUNT 283 /CUMM (130-400); RED BLOOD CELL CT 3.93 /CUMM (4.20-5.40); WHITE BLOOD CELL COUNT 4.9 /CUMM (4.8-10.8)
[2016-06-18 19:02] LABS: PT 14.3 SEC (9.4-12.5)
--- NOTE | 2016-06-18 19:44 | CT SCAN REPORT ---
EXAMINATION: CT ABDOMEN AND PELVIS WITHOUT CONTRAST CLINICAL INFORMATION: Diarrhea. Right flank pain. Bright red blood per rectum. COMPARISON: CT abdomen and pelvis 11/27/2015. TECHNIQUE: Multidetector volumetric imaging was performed from the superior aspect of the liver through the pubic symphysis. Sagittal and coronal reformatted images were obtained on the technologist's workstation. DLP: 229 mGy-cm. FINDINGS: LUNG BASES: Mild subsegmental atelectasis at the left lung base. No pleural effusion. LIVER, GALLBLADDER, AND BILIARY TREE: The liver is normal in size, shape, and attenuation. No focal hepatic lesion or biliary ductal dilatation is present. The gallbladder is unremarkable with no evidence of radiopaque gallstones, gallbladder wall thickening, or obvious pericholecystic inflammatory changes. PANCREAS: Unremarkable. SPLEEN: Unremarkable. ADRENAL GLANDS: Unremarkable. KIDNEYS AND URETERS: No hydronephrosis. There are bilateral punctate renal calculi which measure less than 0.4 cm in diameter. No ureteral calculus demonstrated. No suspicious renal mass. BLADDER: Unremarkable. GASTROINTESTINAL TRACT: Bowel gas pattern is nonobstructive. No evidence of acute bowel inflammation. The appendix is normal. ABDOMINAL WALL: No significant hernia is appreciated. LYMPH NODES: No pathologically enlarged lymph nodes are demonstrated. VASCULAR: Unremarkable. PELVIC VISCERA: Small volume of free pelvic fluid measuring 22 Hounsfield units; note should be made that similar fluid was noted in the pelvis on prior CT scan 11/2015. No convincing suspicious ovarian or adnexal lesion. OSSEOUS STRUCTURES: No acute osseous abnormalities. Postprocedural changes from left proximal femoral cortication noted. IMPRESSION: 1. No acute bowel pathology. 2. Punctate bilateral nonobstructing renal calculi. No ureteral calculus demonstrated. 3. Nonspecific small volume of free fluid in the pelvis. This may reflect physiologic sequela of the patient's menstrual cycle. Note should be made that a similar small volume of free fluid was noted on CT scan 11/2015.
[2016-06-18 20:04] VITALS: BP 131/101
== END 2016-06-18 20:23 ==
LOC: ERH 17:41
PROVIDERS: Physician Assistant Medical
DX: R10.31 Right lower quadrant pain (principal); Z79.01 Long term (current) use of anticoagulants; R79.1 Abnormal coagulation profile
CPT/HCPCS: 74176; 81001; 81025; 96374; 96376

== ENCOUNTER 2016-06-20 15:34 | Emergency (ER) | payer OTHER ==
[~2016-06-20] VITALS: Ht 167.6 cm; Wt 60.8 kg
[2016-06-20 18:54] LABS: ABSOLUTE BASOPHIL COUNT 0 /CUMM (0.0-0.2); ABSOLUTE EOSINOPHIL COUNT 0 /CUMM (0.0-0.7); ABSOLUTE GRANULOCYTE CT 5.6 /CUMM (1.4-6.5); ABSOLUTE LYMPH COUNT 1.3 /CUMM (1.2-3.4); ABSOLUTE MONOCYTE COUNT 0.9 /CUMM (0.10-0.60); BASOPHIL % 0.3 % (0.0-2.0); EOSINOPHIL % 0.4 % (0-5); GRANULOCYTE % 71.9 % (42.2-75.2); HEMATOCRIT 35.7 % (37-47); MEAN CORPUSCULAR HGB 27.2 PG (27.0-31.0); MEAN CORPUSCULAR HGB CONC 32.5 G/DL (33.0-37.0); MEAN CORPUSCULAR VOLUME 83.8 FL (81.0-99.0); MEAN PLATELET VOLUME 8.4 FL (7.4-10.4); PLATELET COUNT 254 /CUMM (130-400); RBC DISTRIBUTION WIDTH 12.7 % (11.5-14.5); RED BLOOD CELL CT 4.26 /CUMM (4.20-5.40)
[2016-06-20 18:56] LABS: WHITE BLOOD CELL COUNT 7.8 /CUMM (4.8-10.8)
[2016-06-20 19:02] LABS: PT 13.2 SEC (9.4-12.5)
--- NOTE | 2016-06-20 21:16 | ED GENERAL ADULT ---
History of Present Illness General Chief Complaint: Abdominal Pain/Flank Pain Stated Complaint: NO RELIEF OF KIDNEY STONE PAIN Source: patient Exam Limitations: no limitations Vital Signs & Intake/Output Vital Signs & Intake/Output Vital Signs Date Time Temp Pulse Resp B/P B/P Pulse O2 O2 Flow FiO2 Mean Ox Delivery Rate 06/20 2150 97.6 63 18 127/90 100 Room Air 06/20 2022 98.2 60 16 138/80 100 Room Air 06/20 1828 98.5 06/20 1541 98.5 99 16 117/84 95 Room Air ED Intake and Output 06/21 0000 06/20 1200 Intake Total 1000 Output Total Balance 1000 Intake, IV 1000 Intake, Oral 0 Patient 134 lb Weight Allergies Coded Allergies: ibuprofen (TRIGGERS ASTHMA, ITCHY, HIVES 11/27/15) meperidine (From DEMEROL) (itch, HIVES 11/27/15) Reconcile Medications Albuterol Sulfate (Proair Hfa) 90 MCG HFA.AER.AD 2 PUF INH Q4-6 PRN PRN SHORTNESS OF BREATH (Reported) Albuterol Sulfate 2.5 MG/3 ML (0.083 %) VIAL.NEB 1 Vial INH/DELMY Q4P PRN SHORTNESS OF BREATH (Reported) Azathioprine (Imuran) 50 MG TABLET 50 MG PO TID LUPUS (Reported) Ciprofloxacin HCl (Cipro) 500 MG TABLET 1 TAB PO BID URINE INFECTION Duloxetine Hydrochloride (Cymbalta) 30 MG CAPSULE.DR 1 CAP PO BID MENTAL HEALTH (Reported) Ergocalciferol (Vitamin D2) (Vitamin D2) 50,000 UNIT CAPSULE 1 CAP PO SuTh SUPPLEMENT (Reported) Fluticasone Propionate (Flovent Hfa) 44 MCG AER.W.ADAP 2 PUF INH BID PRN ASTHMA (Reported) Hydroxychlorquine (Plaquenil) 200 MG TABLET 1 TAB PO BID LUPUS (Reported) Labetalol HCl 100 MG TABLET 1 TAB PO BID HEART (Reported) Metoclopramide HCl (Reglan) 10 MG TABLET 1 TAB PO 4 TIMES/DAY PRN nausea 30 minutes before meals and bedtime Metoclopramide HCl (Reglan) 10 MG TABLET 1 TAB PO 4 TIMES/DAY PRN nausea 30 minutes before meals and bedtime Metoclopramide HCl (Reglan) 10 MG TABLET 1 TAB PO Q6 PRN nausea Montelukast Sodium (Singulair) 10 MG TABLET 1 TAB PO DAILY ALLERGIES ( Reported) Oxycodone HCl/Acetaminophen (Oxycodone-Acetaminophen 10-325) 10 MG-325 MG TABLET 1 TAB PO Q4P PRN PAIN (Reported) Pantoprazole Sodium 40 MG TABLET.DR 1 TAB PO DAILY GI (Reported) Prednisone 20 MG TABLET 12 MG PO DAILY LUPUS (Reported) Tramadol HCl (Ultram) 50 MG TABLET 1 TAB PO BIDP PRN pain Trazodone HCl 50 MG TABLET 1 TAB PO QPM SLEEP (Reported) Warfarin Sodium (Coumadin) 10 MG TABLET 1 TAB PO DAILY HX DVT (Reported) Triage Note: PT STATES SHE WAS SEEN ON MONDAY OR MONDAY EVENING IN ED AND WAS TOLD SHE HAS A KIDNEY STONE AND STATES SHE IS STILL HAVING PAIN RIGHT SIDE. PT STATES SHE HAS BEEN DRINKING A LOT OF WATER BUT IT ISN'T WORKING. PT REPORTS THE LAST TIME THIS HAPPEND SHE HAD TO GET THEM "BLASTED OUT" Triage Nurses Notes Reviewed? yes Onset: Gradual Duration: day(s):, constant, getting worse Timin-3 days : No Patient currently breastfeeds: No HPI: 26-year-old female with a past medical history of lupus, pericarditis, DVT (on coumadin), recurrent kidney stones presenting with bilateral flank pain 3 days. Reports intermittent sharp pain initially began in the back and has been progressively moving towards lower abdomen, worse on the right thigh. Seen in the ED 2 days ago and diagnosed with nephrolithiasis via CT scan abdomen and pelvis. Renal stones measured less than 4 mm patient was discharged with expectant management. Returns for worsening pain intolerable at home. Denies fevers, dysuria, hematuria, vomiting. Some nausea. (CIRA COLLINS,NOHEMY) Past History Travel History Traveled to [place] past 21 day No Medical History Any Pertinent Medical History? 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 MOTHER (Rheumatoid arthritis). SISTER (Psoariasis). Relation not specified for: Blood clots DVT FH: diabetes mellitus FH: pancreatic cancer FH: rheumatoid arthritis Hx Contributory? No (NOHEMY DENIS PA-C) Review of Systems Review of Systems Constitutional: Reports: no symptoms. Respiratory: Reports: no symptoms. Cardiovascular: Reports: no symptoms. GI: Reports: abdominal pain, nausea. Denies: diarrhea, vomiting. Genitourinary: Denies: discharge, dysuria, frequency, hematuria, urgency. (NOHEMY DENIS PA-C) Physical Exam Physical Exam General Appearance: well developed/nourished, mild distress Head: atraumatic Respiratory: normal breath sounds, lungs clear Cardiovascular: regular rate/rhythm Gastrointestinal: normal bowel sounds, soft, non-tender Back: CVA tenderness (R), CVA tenderness (L) Core Measures ACS in differential dx? No CVA/TIA Diagnosis: No Severe Sepsis Present: No Septic Shock Present: No (NOHEMY DENIS PA-C) Progress Differential Diagnoses I considered the following diagnoses in my evaluation of the patient: [ Nephrolithiasis versus ureterolithiasis versus pyelonephritis versus cystitis cervicitis] Plan of Care: Orders Procedure Date/time Status PROTHROMBIN TIME 06/20 1821 Complete CULTURE,URINE 06/21 1815 Active URINALYSIS 06/21 1815 Complete CBC WITHOUT DIFFERENTIAL 06/21 1815 Complete BASIC METABOLIC PANEL 06/21 1815 Complete Laboratory Tests 06/20/16 193: Urine Color YEL, Urine Clarity CLEAR, Urine pH 7.0, Ur Specific [place] 1.015, Urine Protein 30 H, Urine Ketones NEG, Urine Nitrite NEG, Urine Bilirubin NEG, Urine Urobilinogen 0.2, Ur Leukocyte Esterase NEG, Ur Microscopic SEDIMENT EXAMINED, Urine RBC 1-3, Urine WBC 3-5 H, Ur Epithelial Cells MANY H, Urine Bacteria FEW H, Urine Mucus MANY H, Urine Hemoglobin NEG, Urine Glucose NEG 06/20/16 1840: Anion Gap 13, Estimated GFR > 60, BUN/Creatinine Ratio 13.3, Glucose 79, Calcium 9.4, PT 13.2 H, INR 1.26 H, CBC w Diff NO MAN DIFF REQ, RBC 4.26, MCV 83.8, MCH 27.2, RDW 12.7, MPV 8.4, Gran % 71.9, Lymphocytes % 16.4 L, Monocytes % 11.0 H, Eosinophils % 0.4, Basophils % 0.3, Absolute Granulocytes 5.6, Absolute Lymphocytes 1.3, Absolute Monocytes 0.9 H, Absolute Eosinophils 0, Absolute Basophils 0, PUBS MCHC 32.5 L Microbiology 06/20 1937 URINE ROUT: Urine Culture - RECD Here and was not clean-catch, but with only few bacteria, 3-5 white blood cells, no nitrites UTI and pyelonephritis unlikely. Kidney function and white blood cell count within normal limits. We'll send home with Ultram for pain control as patient cannot take NSAIDs secondary to Coumadin use. Will follow up with primary care provider. (CIRA COLLINS,NOHEMY) Initial ED EKG: none (CIRA COLLINS,NOHEMY) Departure Departure Disposition: HOME OR SELF CARE Condition: Stable Clinical Impression Primary Impression: Flank pain Referrals: MIRTHA LOBATO (PCP/Family) Additional Instructions: Take one tab of tramadol twice daily as needed for pain. Maintain adequate fluid intake. Follow up with her primary care provider for reevaluation. Departure Forms: Customer Survey General Discharge Information Prescriptions: Current Visit Scripts Tramadol HCl (Ultram) 1 TAB PO BIDP PRN pain #30 TAB (NOHEMY DENIS PA-C) PA/SUPERVISOR GROWER Co-Sign Statement Statement: ED Attending supervision documentation- [] I saw and evaluated the patient. I have also reviewed all the pertinent lab results and diagnostic results. I agree with the findings and the plan of care as documented in the PA's/SUPERVISOR GROWER's documentation. [x] I have reviewed the ED Record and agree with the PA's/SUPERVISOR GROWER's documentation. [] Additions or exceptions (if any) to the PAs/SUPERVISOR GROWER's note and plan are summarized below: [] (REY DEL VALLE,CHANG Link) Critical Care Note Critical Care Note Critical Care Time: non-applicable (CIRA COLLINS,NOHEMY)
[2016-06-20] MEDS ORDERED: ULTRAM50 M1 PO (21:36)
[2016-06-20 21:51] VITALS: BP 127/90
[2016-07-15] MEDS ORDERED: HYDROXYZINE HCL25 M2 PO (12:24)
[2016-07-15] MEDS ORDERED: PERCOCET 10-321 EACH PO (12:24)
[2016-07-15] MEDS ORDERED: SINGULAIR10 M1 PO (12:24)
== END 2016-06-20 22:10 ==
LOC: ERH 15:34
PROVIDERS: Physician Assistant
DX: R10.32 Left lower quadrant pain (principal); R10.31 Right lower quadrant pain; Z79.01 Long term (current) use of anticoagulants
CPT/HCPCS: 81001; 87086; 96365; 96375; 96376; J2405

== ENCOUNTER 2016-06-24 08:59 | Emergency (ER) | payer OTHER ==
[~2016-06-24 08:59] MED LIST changes: +ULTRAM50 M1 PO
--- NOTE | 2016-06-24 09:41 | ED GI/GU/ABDOMINAL COMPLAINT ---
History of Present Illness General Chief Complaint: General Adult Stated Complaint: ABDOMINAL PAIN,TROUBLE USING HANDS AND FEET Source: patient Exam Limitations: no limitations Vital Signs & Intake/Output Vital Signs & Intake/Output Vital Signs Date Time Temp Pulse Resp B/P B/P Pulse O2 O2 Flow FiO2 Mean Ox Delivery Rate 06/24 1108 98.2 108 20 122/86 97 Room Air 06/24 1034 98 Room Air 06/24 0906 97.9 113 22 123/89 96 Allergies Coded Allergies: ibuprofen (TRIGGERS ASTHMA, ITCHY, HIVES 11/27/15) meperidine (From DEMEROL) (itch, HIVES 11/27/15) Reconcile Medications Albuterol Sulfate (Proair Hfa) 90 MCG HFA.AER.AD 2 PUF INH Q4-6 PRN PRN SHORTNESS OF BREATH (Reported) Albuterol Sulfate 2.5 MG/3 ML (0.083 %) VIAL.NEB 1 Vial INH/DELMY Q4P PRN SHORTNESS OF BREATH (Reported) Azathioprine (Imuran) 50 MG TABLET 50 MG PO TID LUPUS (Reported) Ciprofloxacin HCl (Cipro) 500 MG TABLET 1 TAB PO BID URINE INFECTION Duloxetine Hydrochloride (Cymbalta) 30 MG CAPSULE.DR 1 CAP PO BID MENTAL HEALTH (Reported) Ergocalciferol (Vitamin D2) (Vitamin D2) 50,000 UNIT CAPSULE 1 CAP PO SuTh SUPPLEMENT (Reported) Fluticasone Propionate (Flovent Hfa) 44 MCG AER.W.ADAP 2 PUF INH BID PRN ASTHMA (Reported) Hydroxychlorquine (Plaquenil) 200 MG TABLET 1 TAB PO BID LUPUS (Reported) Labetalol HCl 100 MG TABLET 1 TAB PO BID HEART (Reported) Metoclopramide HCl (Reglan) 10 MG TABLET 1 TAB PO 4 TIMES/DAY PRN nausea 30 minutes before meals and bedtime Metoclopramide HCl (Reglan) 10 MG TABLET 1 TAB PO 4 TIMES/DAY PRN nausea 30 minutes before meals and bedtime Metoclopramide HCl (Reglan) 10 MG TABLET 1 TAB PO Q6 PRN nausea Montelukast Sodium (Singulair) 10 MG TABLET 1 TAB PO DAILY ALLERGIES ( Reported) Oxycodone HCl/Acetaminophen (Oxycodone-Acetaminophen 10-325) 10 MG-325 MG TABLET 1 TAB PO Q4P PRN PAIN (Reported) Pantoprazole Sodium 40 MG TABLET.DR 1 TAB PO DAILY GI (Reported) Prednisone 20 MG TABLET 12 MG PO DAILY LUPUS (Reported) Tramadol HCl (Ultram) 50 MG TABLET 1 TAB PO BIDP PRN pain Trazodone HCl 50 MG TABLET 1 TAB PO QPM SLEEP (Reported) Warfarin Sodium (Coumadin) 10 MG TABLET 1 TAB PO DAILY HX DVT (Reported) Triage Note: PER PT HAVING INCREASED PAIN AND INCREASED PAIN TO HANDS AND FEET. 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 yes ? N Is pt currently ? No HPI: Patient presents for reevaluation of a bilateral and lower abdominal pain that began a number of days ago. Patient was evaluated in the emergency department and told she has a kidney stone. She was instructed to return to the emergency department if the pain did not resolve. Patient states the pain has persisted and is described as a sharp pain, very severe in intensity. In addition the patient states that she has been having chills, nausea, diarrhea, painful extremities, and asthma exacerbation, heart palpitations and chest pain. Past History Travel History Traveled to [place] past 21 day No Medical History Any Pertinent Medical History? 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 MOTHER (Rheumatoid arthritis). SISTER (Psoariasis). Relation not specified for: Blood clots DVT FH: diabetes mellitus FH: pancreatic cancer FH: rheumatoid arthritis Hx Contributory? No Review of Systems Review of Systems Constitutional: Reports: no symptoms. EENTM: Reports: no symptoms. Respiratory: Reports: no symptoms. Cardiovascular: Reports: no symptoms. GI: Reports: see HPI. Genitourinary: Reports: no symptoms. Musculoskeletal: Reports: no symptoms. Skin: Reports: no symptoms. Neurological/Psychological: Reports: no symptoms. Hematologic/Endocrine: Reports: no symptoms. Immunologic/Allergic: Reports: no symptoms. All Other Systems: Reviewed and Negative Physical Exam Physical Exam Gastrointestinal: SEE BELOW Comments: Gen.: Well-nourished, well-developed, no acute respiratory distress. Head: Normocephalic, atraumatic. Eyes: Normal inspection bilaterally Ears: Normal inspection bilaterally Nose: Normal inspection Throat/mouth : Moist mucosa Neck: Supple, full range of motion, no goiter Heart: Regular rate and rhythm, no murmurs rubs or gallops Lungs: Clear to auscultation bilaterally with normal air entry Chest: Nontender Back: Normal range of motion Abdomen: Soft, diffuse tenderness without rebound or guarding, nondistended, normal bowel sounds Extremities: Normal range of motion grossly, equal radial pulses, no cyanosis clubbing or edema Neurologic: Cranial nerves grossly intact, speech is clear Skin: warm and dry Psychiatric: Calm, cooperative, no apparent delusions or hallucinations Core Measures ACS in differential dx? No Severe Sepsis Present: No Septic Shock Present: No Progress Differential Diagnosis: biliary colic, diverticulitis, gastritis, inflamm bowel dis, pancreatitis, PUD/GERD, perforated viscous Plan of Care: Orders Procedure Date/time Status Telemetry/Home Appraiser 06/24 956 Active TROPONIN LEVEL 06/24 956 Complete MAGNESIUM 06/24 956 Complete LIPASE 06/24 956 Complete HIGH SENSITIVITY CRP 06/24 956 Complete WESTERGREN SED RATE 06/24 956 Complete COMPREHENSIVE METABOLIC PANEL 06/24 956 Complete CREATINE PHOSPHOKINASE 06/24 956 Complete CBC WITHOUT DIFFERENTIAL 06/24 956 Complete EKG 06/24 956 Active Laboratory Tests 06/24/16 1030: Anion Gap 12, Estimated GFR > 60, BUN/Creatinine Ratio 18.0, Glucose 81, Calcium 9.0, Magnesium 1.6, Total Bilirubin 0.6, AST 24, ALT 31, Alkaline Phosphatase 58 , Creatine Kinase 55, Troponin I < 0.01, C-React Prot High Sens 5.6 H, Total Protein 8.5 H, Albumin 4.1, Globulin 4.4 H, Albumin/Globulin Ratio 0.9 L, Lipase 67, CBC w Diff NO MAN DIFF REQ, RBC 3.81 L, MCV 82.9, MCH 27.0, RDW 12.8 , MPV 8.9, Gran % 60.6, Lymphocytes % 25.2, Monocytes % 9.8 H, Eosinophils % 1.7, Basophils % 2.7 H, Absolute Granulocytes 3.0, Absolute Lymphocytes 1.2, Absolute Monocytes 0.5, Absolute Eosinophils 0.1, Absolute Basophils 0.1, PUBS MCHC 32.6 L, ESR Westergren 78 H Diagnostic Imaging: Discussed w/RAD: Ultrasound. Radiology Impression: PATIENT: RAJEEV GLASER PRESENT AGE: 26 PATIENT ACCOUNT NO: [id number] : 91 LOCATION: [facility] ORDERING PHYSICIAN: DAVIE BAY MD SERVICE DATE: 06/24/16 EXAM TYPE: US - US-COMPLETE ABDOMEN EXAMINATION: US ABDOMEN COMPLETE CLINICAL INFORMATION: Abdominal pain; history of lupus; question splenomegaly. COMPARISON: CT abdomen and pelvis dated 06/18/2016. TECHNIQUE: Real-time imaging of the abdominal viscera. FINDINGS: PANCREAS: Normal. ABDOMINAL AORTA: The proximal segment is normal in caliber. INFERIOR VENA CAVA: Visualized portions are normal. LIVER: Normal. The liver demonstrates normal size, contour and echogenicity. No focal lesion or intrahepatic biliary duct dilatation. GALLBLADDER: Normal. The gallbladder is physiologically distended without evidence of stones, sludge, polyps, wall thickening or pericholecystic fluid. COMMON BILE DUCT: Normal in caliber measuring 0.2 cm in diameter. RIGHT KIDNEY: Normal. No hydronephrosis. No renal calculi or focal parenchymal lesions. The kidney measures 10.6 cm in maximum dimension. LEFT KIDNEY: Normal. No hydronephrosis. No renal calculi or focal parenchymal lesions. The kidney measures 10.8 cm in maximum dimension. SPLEEN: Normal. The spleen measures 8.6 cm in maximum dimension. FREE FLUID: None. IMPRESSION: Unremarkable examination. No splenomegaly is seen. DICTATED BY : SATHISH KIM MD DATE/TIME DICTATED:06/24/161226 WATCH DIAL PRINTER:SIVAKUMAR DATE/TIME TRANSCRIBED:06/24/161226 CONFIDENTIAL, DO NOT COPY WITHOUT APPROPRIATE AUTHORIZATION. <Electronically signed in Other Vendor System> SIGNED BY: SATHISH KIM MD 06/24/16 1232 CXR Impression: PATIENT: RAJEEV GLASER PRESENT AGE: 26 PATIENT ACCOUNT NO: [id number] : 91 LOCATION: [facility] ORDERING PHYSICIAN: DAVIE BAY MD SERVICE DATE: 06/24/16 EXAM TYPE: RAD - XRY-CHEST XRAY, PA AND LATERAL EXAMINATION: XR CHEST CLINICAL INFORMATION: CP with dyspnea and lupus. COMPARISON: None. TECHNIQUE: 2 views of the chest were obtained. FINDINGS: Compared to the previous study the cardiac silhouette is decreased in size. Heart and pulmonary vessels are normal. No infiltrates, effusions, or lung masses are seen. IMPRESSION: No acute intrathoracic disease. DICTATED BY: BONY CANALES MD DATE/TIME DICTATED:06/24/161010 WATCH DIAL PRINTER:SIVAKUMAR DATE/TIME TRANSCRIBED:06/24/161010 CONFIDENTIAL, DO NOT COPY WITHOUT APPROPRIATE AUTHORIZATION. <Electronically signed in Other Vendor System> SIGNED BY: BONY CANALES MD 06/24/16 1029 Initial ED EKG: NSR, rate (54) Comments: Given patient's prior abdominal pain evaluation, RAJEEV felt it would be reasonable to hold off on additional imaging studies here in the emergency department. Appendicitis-the patient did not have migration of the pain to the right lower quadrant, tenderness over McBurney's point, Rovsing sign, white cell blood count was not elevated Peritonitis-the patient had no rebound or guarding, did not have a rigid abdomen , the white blood cell count was not elevated Cholecystitis-the patient had no Lester's sign on exam, white blood cell count and liver enzymes were normal, Pancreatitis-the lipase was normal, patient had no history of alcohol abuse or hypertriglyceridemia, GI bleed-patient had no history of prior GI bleed, patient denied consistent use of NSAIDs, the patient is not taking anticoagulants such as Coumadin, the patient denied melena. AAA-the patient has a paucity of significant risk factors for vascular disease, there was no pulsatile abdominal mass, lower extremity pulses were equal Hernia-there were no apparent hernias on physical examination, the patient denied any unusual bulges or masses Ischemic bowel-the patient has a paucity of risk factors for vascular disease or thrombosis, physical examination did not reveal pain out of proportion to physical exam findings Bowel obstruction-patient's abdomen was not significantly distended or hypertympanitic, patient had good bowel sounds, patient was having bowel movements and passing flatus. Departure Departure Disposition: HOME OR SELF CARE Condition: Stable Clinical Impression Primary Impression: Lupus Qualifiers: Systemic lupus erythematosus type: unspecified Systemic lupus erythematosus organ involvement: unspecified Qualified Code: M32.9 - Systemic lupus erythematosus, unspecified Referrals: MIRTHA LOBATO (PCP/Family) Additional Instructions: Follow up with your mechanical engineering technician regarding a possible increasing your prednisone dose over the next few days for possible flareup of lupus. Otherwise continue your current medications. Consider following up with a gastrointestinal specialist given your bouts of abdominal pain. Since the cause of your symptoms is somewhat unclear at this point please return to the emergency department if any concerns or sudden worsening. Please note that there might be incidental findings in your evaluation that are unrelated to the current emergency department visit. Please notify your primary care doctor about this emergency department visit in order to obtain and review all of the testing performed so that these incidental findings can be monitored as needed. If you had an x-ray performed, please understand that some fractures may not be seen on the initial set of x-rays. If your symptoms persist you might need a repeat set of x-rays to check for such a fracture. If you had a laceration evaluated, please understand that foreign bodies such as glass or wood may not be visible to the naked eye or on plain x-rays. If the wound becomes red, swollen, increasingly more painful or if there is any drainage from the wound, please have it reevaluated by a physician for the possibility of a retained foreign body. Thank you for choosing the [facility] Emergency Department for your care. It was a pleasure to serve you today. Davie Bay M.D. [facility] Departure Forms: Customer Survey General Discharge Information
--- NOTE | 2016-06-24 10:29 | RADIOLOGY REPORT ---
EXAMINATION: XR CHEST CLINICAL INFORMATION: CP with dyspnea and lupus. COMPARISON: None. TECHNIQUE: 2 views of the chest were obtained. FINDINGS: Compared to the previous study the cardiac silhouette is decreased in size. Heart and pulmonary vessels are normal. No infiltrates, effusions, or lung masses are seen. IMPRESSION: No acute intrathoracic disease.
[2016-06-24 10:45] LABS: ABSOLUTE BASOPHIL COUNT 0.1 /CUMM (0.0-0.2); ABSOLUTE EOSINOPHIL COUNT 0.1 /CUMM (0.0-0.7); ABSOLUTE LYMPH COUNT 1.2 /CUMM (1.2-3.4); ABSOLUTE MONOCYTE COUNT 0.5 /CUMM (0.10-0.60); BASOPHIL % 2.7 % (0.0-2.0); EOSINOPHIL % 1.7 % (0-5); GRANULOCYTE % 60.6 % (42.2-75.2); HEMATOCRIT 31.6 % (37-47); MEAN CORPUSCULAR HGB CONC 32.6 G/DL (33.0-37.0); MEAN CORPUSCULAR VOLUME 82.9 FL (81.0-99.0); MEAN PLATELET VOLUME 8.9 FL (7.4-10.4); PLATELET COUNT 246 /CUMM (130-400); RBC DISTRIBUTION WIDTH 12.8 % (11.5-14.5); RED BLOOD CELL CT 3.81 /CUMM (4.20-5.40); WHITE BLOOD CELL COUNT 4.9 /CUMM (4.8-10.8)
--- NOTE | 2016-06-24 12:32 | ULTRASOUND REPORT ---
EXAMINATION: US ABDOMEN COMPLETE CLINICAL INFORMATION: Abdominal pain; history of lupus; question splenomegaly. COMPARISON: CT abdomen and pelvis dated 06/18/2016. TECHNIQUE: Real-time imaging of the abdominal viscera. FINDINGS: PANCREAS: Normal. ABDOMINAL AORTA: The proximal segment is normal in caliber. INFERIOR VENA CAVA: Visualized portions are normal. LIVER: Normal. The liver demonstrates normal size, contour and echogenicity. No focal lesion or intrahepatic biliary duct dilatation. GALLBLADDER: Normal. The gallbladder is physiologically distended without evidence of stones, sludge, polyps, wall thickening or pericholecystic fluid. COMMON BILE DUCT: Normal in caliber measuring 0.2 cm in diameter. RIGHT KIDNEY: Normal. No hydronephrosis. No renal calculi or focal parenchymal lesions. The kidney measures 10.6 cm in maximum dimension. LEFT KIDNEY: Normal. No hydronephrosis. No renal calculi or focal parenchymal lesions. The kidney measures 10.8 cm in maximum dimension. SPLEEN: Normal. The spleen measures 8.6 cm in maximum dimension. FREE FLUID: None. IMPRESSION: Unremarkable examination. No splenomegaly is seen.
[2016-06-24 13:51] VITALS: BP 124/85
[2016-07-15] MEDS ORDERED: HYDROXYZINE HCL25 M2 PO (12:24)
[2016-07-15] MEDS ORDERED: SINGULAIR10 M1 PO (12:24)
[2016-07-15] MEDS ORDERED: PERCOCET 10-321 EACH PO (12:24)
== END 2016-06-24 13:54 ==
LOC: ERH 08:59
PROVIDERS: Emergency Medicine
DX: L93.0 Discoid lupus erythematosus (principal)
CPT/HCPCS: 93005; 93010; 96372; J2405

== ENCOUNTER 2016-07-12 19:31 | Emergency (ER) | payer OTHER ==
[2016-07-12 19:55] VITALS: BP 108/75
--- NOTE | 2016-07-12 20:59 | ED GI/GU/ABDOMINAL COMPLAINT ---
History of Present Illness General Chief Complaint: Female Urogenital Problems Stated Complaint: ?KIDNEY STONE Source: patient, old records Exam Limitations: no limitations Vital Signs & Intake/Output Vital Signs & Intake/Output Vital Signs Date Time Temp Pulse Resp B/P B/P Pulse O2 O2 Flow FiO2 Mean Ox Delivery Rate 07/12 1954 98.5 90 20 108/75 Allergies Coded Allergies: ibuprofen (TRIGGERS ASTHMA, ITCHY, HIVES 11/27/15) meperidine (From DEMEROL) (itch, HIVES 11/27/15) Reconcile Medications Albuterol Sulfate (Proair Hfa) 90 MCG HFA.AER.AD 2 PUF INH Q4-6 PRN PRN SHORTNESS OF BREATH (Reported) Albuterol Sulfate 2.5 MG/3 ML (0.083 %) VIAL.NEB 1 Vial INH/DELMY Q4P PRN SHORTNESS OF BREATH (Reported) Azathioprine (Imuran) 50 MG TABLET 50 MG PO TID LUPUS (Reported) Ciprofloxacin HCl (Cipro) 500 MG TABLET 1 TAB PO BID URINE INFECTION Duloxetine Hydrochloride (Cymbalta) 30 MG CAPSULE.DR 1 CAP PO BID MENTAL HEALTH (Reported) Ergocalciferol (Vitamin D2) (Vitamin D2) 50,000 UNIT CAPSULE 1 CAP PO SuTh SUPPLEMENT (Reported) Fluticasone Propionate (Flovent Hfa) 44 MCG AER.W.ADAP 2 PUF INH BID PRN ASTHMA (Reported) Hydroxychlorquine (Plaquenil) 200 MG TABLET 1 TAB PO BID LUPUS (Reported) Labetalol HCl 100 MG TABLET 1 TAB PO BID HEART (Reported) Metoclopramide HCl (Reglan) 10 MG TABLET 1 TAB PO 4 TIMES/DAY PRN nausea 30 minutes before meals and bedtime Metoclopramide HCl (Reglan) 10 MG TABLET 1 TAB PO 4 TIMES/DAY PRN nausea 30 minutes before meals and bedtime Metoclopramide HCl (Reglan) 10 MG TABLET 1 TAB PO Q6 PRN nausea Montelukast Sodium (Singulair) 10 MG TABLET 1 TAB PO DAILY ALLERGIES ( Reported) Oxycodone HCl/Acetaminophen (Oxycodone-Acetaminophen 10-325) 10 MG-325 MG TABLET 1 TAB PO Q4P PRN PAIN (Reported) Pantoprazole Sodium 40 MG TABLET.DR 1 TAB PO DAILY GI (Reported) Prednisone 20 MG TABLET 12 MG PO DAILY LUPUS (Reported) Tramadol HCl (Ultram) 50 MG TABLET 1 TAB PO BIDP PRN pain Trazodone HCl 50 MG TABLET 1 TAB PO QPM SLEEP (Reported) Warfarin Sodium (Coumadin) 10 MG TABLET 1 TAB PO DAILY HX DVT (Reported) Triage Note: PER PT KIDNEY STONE PAIN TO RT LOWER QUADRANT, NAUSEA AND DIZZY Triage Nurses Notes Reviewed? yes ? N Is pt currently ? No HPI: Patient presents with 2 complaints. Her first complaint is right-sided abdominal pain that starts in the right flank and radiates to the groin. The symptoms have been there for the past 2 months constantly. Patient was seen here 3 weeks ago and was diagnosed with a kidney stone. At that point her CAT scan showed punctate stones inside her right kidney. Patient states she required surgery for kidney stones a few years ago. There is positive nausea but no vomiting. The pain is constant. The pain is sharp and stabbing that she rates as a 10 out of 10. Patient other complaint is constipation. Patient states her last bowel movement was 2 days ago. She is having crampy abdominal pain. The patient has diffuse. There no aggravating factors. Patient rates that pain as 10 out of 10. Past History Travel History Traveled to [place] past 21 day No Medical History Any Pertinent Medical History? 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 MOTHER (Rheumatoid arthritis). SISTER (Psoariasis). Relation not specified for: Blood clots DVT FH: diabetes mellitus FH: pancreatic cancer FH: rheumatoid arthritis Hx Contributory? No Review of Systems Review of Systems Constitutional: Reports: no symptoms. EENTM: Reports: no symptoms. Respiratory: Reports: no symptoms. Cardiovascular: Reports: no symptoms. GI: Reports: see HPI, abdominal pain. Genitourinary: Reports: no symptoms. Musculoskeletal: Reports: no symptoms. Skin: Reports: no symptoms. Neurological/Psychological: Reports: no symptoms. Hematologic/Endocrine: Reports: no symptoms. Immunologic/Allergic: Reports: no symptoms. All Other Systems: Reviewed and Negative Physical Exam Physical Exam General Appearance: well developed/nourished, alert, awake, mild distress Head: atraumatic, normal appearance Eyes: Bilateral: PERRL, EOMI. Ears, Nose, Throat, Mouth: hearing grossly normal, moist mucous membrane Neck: normal inspection, supple, full range of motion Respiratory: normal breath sounds, chest non-tender, no respiratory distress, lungs clear Cardiovascular: regular rate/rhythm, normal peripheral pulses Gastrointestinal: normal bowel sounds, soft, no organomegaly, tenderness ( DIFFUSELY TO MINIMAL PALP) Back: normal inspection, normal range of motion Extremities: normal range of motion Neurologic/Psych: no motor/sensory deficits, awake, alert, oriented x 3, normal gait, normal mood/affect Skin: intact, normal color, warm/dry Core Measures ACS in differential dx? No Severe Sepsis Present: No Septic Shock Present: No Progress Differential Diagnosis: appendicitis, cholecystitis, gastritis, hepatitis, ischemic bowel, inflamm bowel dis, pancreatitis, SBO, UTI/pyelo Plan of Care: Orders Procedure Date/time Status LIPASE 07/13 2119 Active COMPREHENSIVE METABOLIC PANEL 07/13 2119 Active CBC WITHOUT DIFFERENTIAL 07/13 2119 Active AMYLASE 07/13 2119 Active URINE 07/13 1939 Complete URINALYSIS 07/13 1939 Complete Laboratory Tests 07/12/162004: Urine Color YEL, Urine Clarity CLEAR, Urine pH 6.0, Ur Specific [place] >= 1.030 , Urine Protein 30 H, Urine Ketones NEG, Urine Nitrite NEG, Urine Bilirubin NEG , Urine Urobilinogen 0.2, Ur Leukocyte Esterase NEG, Ur Microscopic SEDIMENT EXAMINED, Urine RBC RARE, Urine WBC 3-5 H, Ur Epithelial Cells RARE, Urine Bacteria FEW H, Urine Mucus MOD H, Urine Hemoglobin NEG, Urine Glucose NEG, Urine Test NEGATIVE Initial ED EKG: none Comments: Patient is refusing to stay for evaluation. Patient states that since she will not be given IV narcotics to help her pain she does not feel that she will get the help that she requires so she is sleeping. Patient is alert and oriented 3. Patient verbally understands the risks of leaving prior to workup being done. Patient verbally understands these risks and states that she is leaving anyway. Departure Departure Disposition: ER WALKOUT Condition: Stable Clinical Impression Primary Impression: Abdominal pain Referrals: MIRTHA LOBATO (PCP/Family) MYRNA ROJAS MD Additional Instructions: FOLLOW UP WITH DR. ROJAS TOMORROW RETURN FOR ANY CONCERNS Departure Forms: Customer Survey General Discharge Information
[2016-07-15] MEDS ORDERED: SINGULAIR10 M1 PO (12:24)
[2016-07-15] MEDS ORDERED: PERCOCET 10-321 EACH PO (12:24)
[2016-07-15] MEDS ORDERED: HYDROXYZINE HCL25 M2 PO (12:24)
== END 2016-07-12 21:26 | disposition admitted as inpatient to this hospital (09) ==
LOC: ERH 19:31
DX: R10.31 Right lower quadrant pain (principal)
CPT/HCPCS: 81001; 81025

== ENCOUNTER → 2016-07-19 | Day surgery (SDC) | payer OTHER ==
[~2016-07-19] VITALS: Ht 167.6 cm; Wt 60.8 kg
[~2016-07-19] MED LIST changes: +HYDROXYZINE HCL25 M2 PO; +PERCOCET 10-321 EACH PO
--- NOTE | 2016-07-19 14:20 | Operative Report ---
Operative/Inv Procedure Report Surgery Date: 07/19/16 Name of Procedure: right renal ESWL/fluoroscopy Pre-Operative Diagnosis: right renal stones Post-Operative Diagnosis: same Estimated Blood Loss: scant Surgeon/Draw In Hand: MYRNA ROJAS MD Anesthesia: moderate sedation Complications: none Operative/Procedure Note Note: The patient was taken to the operating room placed on the OR table in supine position. Timeout was performed, with the patient awake, in order to confirm correct procedure, laterality, anesthesia, and other pertinent perioperative information. After adequate anesthesia and antibiotics, the patient was then positioned over the ESWL table cutout overlying the treatment dome. Fluoroscopy , using AP and oblique views, as well as renal ultrasound, or performed in order to locate the stone. The position of the stone was optimized at the middle of the ESWL crosshairs. The stone was measured to be approximately 6 mm in size. ESWL was initiated at low power, and after 200 shockwaves delivered, noting the patient's tolerance to the shockwaves, the power was increased to maximum. At the end of 2500 shockwaves, fluoroscopy confirms the change in consistency of the stone, indicating shattering of the stone. The patient tolerated this procedure well. The patient tolerated the procedures well, and was taken to the recovery room in satisfactory condition. The patient is discharged home with pain medication, and follow-up instructions with in 2-3 weeks' time. Findings: 2 UP stones: 6mm burden Discharge Disposition: Same Day Admissions CC: MYRNA ROJAS MD
== END ==
LOC: STS 01:23
PROVIDERS: Urology
DX: N20.0 Calculus of kidney (principal); I10 Essential (primary) hypertension; Z86.718 Personal history of other venous thrombosis and embolism; Z79.01 Long term (current) use of anticoagulants; F17.200 Nicotine dependence, unspecified, uncomplicated; J45.909 Unspecified asthma, uncomplicated
CPT/HCPCS: 36415; 81025

== ENCOUNTER 2017-03-31 09:19 | Emergency (ER) | payer OTHER ==
[~2017-03-31] VITALS: Ht 167.6 cm; Wt 61.2 kg
[~2017-03-31 09:19] MED LIST changes: +ABILIFY5 M1 PO; +ADVAIR 250-501 EACH INH; +ARIPIPRAZOLE5 M1 PO; +AUGMENTIN 875-1 EACH PO; +AZITHROMYCIN250 M1 PO; +BACTRIM DS TAB1 EACH PO; +CEFUROXIME500 MG PO; +CIPROFLOXACIN500 M2 PO; +COUMADIN6 M1 PO; +FLOMAX0.4 M1 PO; +KEFLEX500 M1 PO; +MELATONIN5 M7 PO; +METRONIDAZOLE500 M1; +MORPHINE SULFAT15 M4 PO; +PREDNISONE5 M1 PO; +RISPERDAL0.5 M1 PO; +WARFARIN SODIU7.5 M1 PO
[2017-03-31] MEDS ORDERED: AMLODIPINE BESYL5 M1 PO (11:13)
--- NOTE | 2017-03-31 11:13 | ED GI/GU/ABDOMINAL COMPLAINT ---
History of Present Illness General Chief Complaint: Abdominal Pain/Flank Pain Stated Complaint: ABD PAIN/BACK PAIN Source: patient Exam Limitations: no limitations Vital Signs & Intake/Output Vital Signs & Intake/Output Vital Signs Date Time Temp Pulse Resp B/P B/P Pulse O2 O2 Flow FiO2 Mean Ox Delivery Rate 03/31 1331 97.4 90 18 148/87 96 03/31 0925 97.2 92 16 140/84 96 Room Air Allergies Coded Allergies: acetaminophen (From VICODIN) (Intermediate, HIVES 03/31/17) hydrocodone (From VICODIN) (Intermediate, HIVES 03/31/17) tramadol (Intermediate, HIVES 03/31/17) ibuprofen (TRIGGERS ASTHMA, ITCHY, HIVES 12/21/16) meperidine (From DEMEROL) (itch, HIVES 12/21/16) Reconcile Medications Albuterol Sulfate (Proair Hfa) 90 MCG HFA.AER.AD 2 PUF INH Q4-6 PRN PRN SHORTNESS OF BREATH (Reported) Albuterol Sulfate 2.5 MG/3 ML (0.083 %) VIAL.NEB 1 Vial INH/DELMY Q4P PRN SHORTNESS OF BREATH (Reported) Amlodipine Besylate 5 MG TABLET 1 TAB PO DAILY HEART (Reported) Azathioprine (Imuran) 50 MG TABLET 50 MG PO BID LUPUS (Reported) Ciprofloxacin HCl (Cipro) 500 MG TABLET 1 TAB PO BID uti Duloxetine Hydrochloride (Cymbalta) 30 MG CAPSULE.DR 1 CAP PO BID depression Take 1 cap po BID. Fluticasone Propionate (Flovent Hfa) 44 MCG AER.W.ADAP 2 PUF INH BID ASTHMA ( Reported) Fluticasone/Salmeterol (Advair 250-50 Diskus) 250 MCG-50 MCG/DOSE BLST.W.DEV 1 PUF INH BID BREATHING PROBLEMS (Reported) Hydroxychlorquine (Plaquenil) 200 MG TABLET 1 TAB PO BID LUPUS (Reported) Labetalol HCl 100 MG TABLET 1.5 TAB PO BID HEART (Reported) Melatonin 5 MG TABLET 5 MG PO AT BEDTIME NEEDED PRN DFA/insomnia/middle- nite awakening Take 1 tab po QHS PRN for insomnia. Metoclopramide HCl (Reglan) 10 MG TABLET 1 TAB PO 4 TIMES/DAY PRN NAUSEA/ VOMITING (Reported) 30 minutes before meals and bedtime Montelukast Sodium (Singulair) 10 MG TABLET 1 TAB PO DAILY ASTHMA (Reported) Phenazopyridine HCl (Pyridium) 100 MG TABLET 1 TAB PO TID pain Prednisone 5 MG TABLET 15 MG PO DAILY LUPUS (Reported) Promethazine HCl 25 MG TABLET 1 TAB PO Q6P PRN NAUSEA Risperidone (Risperdal) 0.5 MG TABLET 1 TAB PO QPM MENTAL HEALTH (Reported) Warfarin Sodium (Coumadin) 7.5 MG TABLET 1 TAB PO DAILY BLOOD THINNER ( Reported) Triage Note: 27 Y/O FEMALE C/O DIFFUSE LOWER ABDOMINAL AND LOWER BACK PAIN X 4 DAYS. STATES PAIN WORSE WITH URINATION OR HAVING A BM. +NAUSEA. DENIES VOMITING. AFEBRILE LAST MENSES 03/10-04/05 AND "NORMAL" PER PT Triage Nurses Notes Reviewed? yes ? N Is pt currently ? No Onset: Gradual Duration: day(s): Timing: recent history Quality/Severity: aching, severe Severity Numbers: 10 Location: generalized abdomen, left flank, right flank HPI: 27yo female presents to ED complaining of abdominal pain and low back pain x 4 days. Patient also reports dysuria and urinary frequency. Patient reports hx of UTI one year ago, this feels similar. The patient also feels nausea. The patient is sexually active with one partner for the past 6 years, she states low suspicion for STI. She denies fevers, chills, vomiting, constipation, diarrhea, changes in vaginal discharge. LMP 2 weeks ago. Past History Travel History Traveled to [place] past 21 day No Medical History Any Pertinent Medical History? 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 MOTHER (Rheumatoid arthritis). SISTER (Psoariasis). Relation not specified for: Blood clots DVT FH: diabetes mellitus FH: pancreatic cancer FH: rheumatoid arthritis Hx Contributory? No Review of Systems Review of Systems Constitutional: Reports: no symptoms. EENTM: Reports: no symptoms. Respiratory: Reports: no symptoms. Cardiovascular: Reports: no symptoms. GI: Reports: see HPI. Genitourinary: Reports: see HPI. Musculoskeletal: Reports: no symptoms. Skin: Reports: no symptoms. Neurological/Psychological: Reports: no symptoms. Hematologic/Endocrine: Reports: no symptoms. Immunologic/Allergic: Reports: no symptoms. All Other Systems: Reviewed and Negative Physical Exam Physical Exam General Appearance: well developed/nourished, no apparent distress, alert, awake Head: atraumatic, normal appearance Eyes: Bilateral: normal appearance. Ears, Nose, Throat, Mouth: hearing grossly normal Neck: normal inspection, supple, full range of motion Respiratory: normal breath sounds, no respiratory distress, lungs clear Cardiovascular: regular rate/rhythm Gastrointestinal: normal bowel sounds, soft, no organomegaly, tenderness through out adominal exam without rebound tenderness Back: normal inspection, +CVA tenderness bilaterally Extremities: normal range of motion Neurologic/Psych: awake, alert, oriented x 3 Skin: intact, normal color, warm/dry Core Measures ACS in differential dx? No Sepsis Present: No Sepsis Focused Exam Completed? No Progress Differential Diagnosis: appendicitis, bowel obstruction, ectopic , hernia, intrauterine , kidney stone, ovarian cyst, ovarian torsion, SBO , UTI/pyelo Plan of Care: Orders Procedure Date/time Status Add-on Test (ER Only) 03/31 1318 Active CULTURE,URINE 03/31 1143 Active LIPASE 03/31 1112 Complete COMPREHENSIVE METABOLIC PANEL 03/31 1112 Complete CBC WITHOUT DIFFERENTIAL 03/31 1112 Complete CHLAMYDIA-GC DNA PROBE 03/31 0928 Active URINE 03/31 0928 Complete URINALYSIS 03/31 0928 Complete Laboratory Tests 03/31/17 1225: Anion Gap 11, Estimated GFR > 60, BUN/Creatinine Ratio 11.7, Glucose 88, Calcium 9.5, Total Bilirubin 0.3, AST 20, ALT 22, Alkaline Phosphatase 49, Total Protein 8.0, Albumin 3.9, Globulin 4.1, Albumin/Globulin Ratio 1.0 L, Lipase 60, CBC w Diff NO MAN DIFF REQ, RBC 4.04 L, MCV 82.1, MCH 26.8 L, MCHC 32.7 L, RDW 14.8 H, MPV 8.5, Gran % 62.2, Lymphocytes % 24.9, Monocytes % 11.7 H, Eosinophils % 0.8, Basophils % 0.4, Absolute Granulocytes 2.7, Absolute Lymphocytes 1.1 L, Absolute Monocytes 0.5, Absolute Eosinophils 0, Absolute Basophils 0, Urinalysis MOD H, Urine Color YEL, Urine Clarity HAZY H, Urine pH 6.0, Ur Specific [place] 1.025, Urine Protein 30 H, Urine Ketones NEG, Urine Nitrite NEG, Urine Bilirubin NEG, Urine Urobilinogen 0.2, Ur Leukocyte Esterase NEG, Ur Microscopic SEDIMENT EXAMINED, Urine RBC 1-3, Urine WBC 5-10 H, Ur Epithelial Cells MANY H , Urine Bacteria MANY H, Urine Mucus MANY H, Urine Hemoglobin NEG, Urine Glucose NEG, Urine Test NEGATIVE Microbiology 03/31 1224 URINE ROUT: GC DNA Probe - RECD 03/31 1224 URINE ROUT: Chlamydia DNA Probe (JEREMI) - RECD 03/31 1224 URINE ROUT: Urine Culture - RECD The patient was discussed with Dr. Bay. The patient's diffuse abdominal tenderness without evidence of significant UTI will obtain CT scan to further rule out intra-abdominal pathology. CT scan without acute abnormality, no change from prior studies. We'll treat with 5 days of Cipro and have patient follow up with urologist. Patient is currently in care with pain management, CT DATA SME shows multiple narcotic prescriptions from over 14 providers. For these reasons nonnarcotic pain medications are recommended. Diagnostic Imaging: Viewed by Me: CT Scan. Discussed w/RAD: CT Scan. Radiology Impression: PATIENT: RAJEEV GLASER PRESENT AGE: 27 PATIENT ACCOUNT NO: [id number] : 91 LOCATION: [facility] ORDERING PHYSICIAN: Bobbi FELIX SERVICE DATE: 03/31/17 EXAM TYPE: CAT - CT ABD & PELVIS W/O IV CONTRAS EXAMINATION: CT ABDOMEN AND PELVIS WITHOUT CONTRAST CLINICAL INFORMATION: Generalized abdominal pain, dysuria. COMPARISON: 12/04/2016 TECHNIQUE: Multidetector volumetric imaging was performed from the superior aspect of the liver through the pubic symphysis. Sagittal and coronal reformatted images were obtained on the technologist's workstation. DLP: 227 mGy-cm FINDINGS: LUNG BASES: The visualized lung bases are unremarkable. LIVER, GALLBLADDER, AND BILIARY TREE: The unenhanced liver is normal in size, shape, and attenuation. No focal hepatic lesion or biliary ductal dilatation is present. The gallbladder is unremarkable with no evidence of radiopaque gallstones, gallbladder wall thickening, or obvious pericholecystic inflammatory changes. PANCREAS: Unremarkable. SPLEEN: Unremarkable. ADRENAL GLANDS: Unremarkable. KIDNEYS AND URETERS: The right ureteral stent has been removed. There is no hydronephrosis. There are a few punctate, nonobstructing calculi in the upper pole of the right kidney as well as the mid pole of the left kidney. Subtle increased density along the medullary pyramids suggests mild medullary nephrocalcinosis, unchanged. BLADDER: Unremarkable. GASTROINTESTINAL TRACT: The small and large bowel are unremarkable. The appendix is unremarkable. ABDOMINAL WALL: No significant hernia is appreciated. LYMPH NODES: Normal. VASCULAR: Unremarkable. PELVIC VISCERA: Unremarkable. OSSEOUS STRUCTURES: Unremarkable. IMPRESSION: There are a few punctate, nonobstructing calculi bilaterally and slight increased density of the medullary pyramids suggesting nephrocalcinosis. This is similar to the previous study. No hydronephrosis. No focal inflammatory process or obstruction. DICTATED BY: John Reyes MD DATE/TIME DICTATED: 03/31/171415 INFANTRYMAN:SIVAKUMAR DATE/TIME TRANSCRIBED:03/31/171415 CONFIDENTIAL, DO NOT COPY WITHOUT APPROPRIATE AUTHORIZATION. <Electronically signed in Other Vendor System> SIGNED BY: John Reyes MD 03/31/171425 Initial ED EKG: none Departure Departure Disposition: HOME OR SELF CARE Condition: Stable Clinical Impression Primary Impression: Abdominal pain Qualifiers: Abdominal location: generalized Qualified Code: R10.84 - Generalized abdominal pain Secondary Impressions: UTI (urinary tract infection) Qualifiers: Urinary tract infection type: acute cystitis Hematuria presence: without hematuria Qualified Code: N30.00 - Acute cystitis without hematuria Referrals: Jesse Mcdonald MD (PCP/Family) Additional Instructions: Take full course of antibiotics. Take Pyridium as prescribed for urinary pain. You may also take Tylenol with this medication. Follow-up with your primary care doctor next week. Return with any worsening symptoms or concerns. Please note that there might be incidental findings in your evaluation that are unrelated to the current emergency department visit. Please notify your primary care doctor about this emergency department visit in order to obtain and review all of the testing performed so that these incidental findings can be monitored as needed. If you had an x-ray performed, please understand that some fractures may not be seen on the initial set of x-rays. If your symptoms persist you might need a repeat set of x-rays to check for such a fracture. If you had a laceration evaluated, please understand that foreign bodies such as glass or wood may not be visible to the naked eye or on plain x-rays. If the wound becomes red, swollen, increasingly more painful or if there is any drainage from the wound, please have it reevaluated by a physician for the possibility of a retained foreign body. If you're unable to follow up as outlined in the discharge instructions please return to the emergency department. Thank you for choosing the [facility] Emergency Department for your care. It was a pleasure to serve you today. Departure Forms: Customer Survey General Discharge Information Prescriptions: Current Visit Scripts Ciprofloxacin HCl (Cipro) 1 TAB PO BID #10 TAB Phenazopyridine HCl (Pyridium) 1 TAB PO TID #6 TAB
[2017-03-31 12:37] LABS: ABSOLUTE BASOPHIL COUNT 0 /CUMM (0.0-0.2); ABSOLUTE EOSINOPHIL COUNT 0 /CUMM (0.0-0.7); ABSOLUTE GRANULOCYTE CT 2.7 /CUMM (1.4-6.5); ABSOLUTE LYMPH COUNT 1.1 /CUMM (1.2-3.4); ABSOLUTE MONOCYTE COUNT 0.5 /CUMM (0.10-0.60); BASOPHIL % 0.4 % (0.0-2.0); EOSINOPHIL % 0.8 % (0-5); GRANULOCYTE % 62.2 % (42.2-75.2); HEMATOCRIT 33.2 % (37-47); MEAN CORPUSCULAR HGB 26.8 PG (27.0-31.0); MEAN CORPUSCULAR HGB CONC 32.7 G/DL (33.0-37.0); MEAN CORPUSCULAR VOLUME 82.1 FL (81.0-99.0); MEAN PLATELET VOLUME 8.5 FL (7.4-10.4); PLATELET COUNT 220 /CUMM (130-400); RBC DISTRIBUTION WIDTH 14.8 % (11.5-14.5); RED BLOOD CELL CT 4.04 /CUMM (4.20-5.40); WHITE BLOOD CELL COUNT 4.4 /CUMM (4.8-10.8)
[2017-03-31 13:31] VITALS: BP 148/87
--- NOTE | 2017-03-31 14:26 | CT SCAN REPORT ---
EXAMINATION: CT ABDOMEN AND PELVIS WITHOUT CONTRAST CLINICAL INFORMATION: Generalized abdominal pain, dysuria. COMPARISON: 12/04/2016 TECHNIQUE: Multidetector volumetric imaging was performed from the superior aspect of the liver through the pubic symphysis. Sagittal and coronal reformatted images were obtained on the technologist's workstation. DLP: 227 mGy-cm FINDINGS: LUNG BASES: The visualized lung bases are unremarkable. LIVER, GALLBLADDER, AND BILIARY TREE: The unenhanced liver is normal in size, shape, and attenuation. No focal hepatic lesion or biliary ductal dilatation is present. The gallbladder is unremarkable with no evidence of radiopaque gallstones, gallbladder wall thickening, or obvious pericholecystic inflammatory changes. PANCREAS: Unremarkable. SPLEEN: Unremarkable. ADRENAL GLANDS: Unremarkable. KIDNEYS AND URETERS: The right ureteral stent has been removed. There is no hydronephrosis. There are a few punctate, nonobstructing calculi in the upper pole of the right kidney as well as the mid pole of the left kidney. Subtle increased density along the medullary pyramids suggests mild medullary nephrocalcinosis, unchanged. BLADDER: Unremarkable. GASTROINTESTINAL TRACT: The small and large bowel are unremarkable. The appendix is unremarkable. ABDOMINAL WALL: No significant hernia is appreciated. LYMPH NODES: Normal. VASCULAR: Unremarkable. PELVIC VISCERA: Unremarkable. OSSEOUS STRUCTURES: Unremarkable. IMPRESSION: There are a few punctate, nonobstructing calculi bilaterally and slight increased density of the medullary pyramids suggesting nephrocalcinosis. This is similar to the previous study. No hydronephrosis. No focal inflammatory process or obstruction.
[2017-03-31] MEDS ORDERED: PYRIDIUM100 M1 PO (14:56)
[2017-03-31] MEDS ORDERED: CIPRO500 M1 PO (14:56)
== END 2017-03-31 15:05 ==
LOC: ERH 09:19
PROVIDERS: Physician Assistant
DX: N39.0 Urinary tract infection, site not specified (principal)
CPT/HCPCS: 74176; 81001; 81025; 87086; 87491; 87591; J3101